=== PATIENT | female | born 1980 | race Caucasian/White ===

== ENCOUNTER → 2023-12-04 | Outpatient (CLI) | payer OTHER, SELFPAY ==
[2023-12-04 12:23] LABS: Absolute Lymphocyte Count 2.15 X10^3/uL (0.83-4.51); Absolute Neutrophil Count 3.9 X10^3/uL (2.0-7.7); Basophil# 0.04 X10^3/uL; Basophil% 0.6 % (0-1); Eosinophil# 0.27 X10^3/uL; Eosinophils% 3.8 % (0-5); Hematocrit 39.6 % (37-47); Lymphocyte # 2.15 X10^3/ul (0.83-4.51); Lymphocyte % 30.6 % (19-41); Mean Corp Hgb Conc 32.8 g/dL (32-36); Mean Corpuscular Hgb 29.5 pg (27.0-32.0); Mean Platelet Vol. 10.1 fl (6.2-12.0); Monocyte# 0.62 X10^3/uL; Monocyte% 8.8 % (0-10); NRBC Flagged by Analyzer 0 % (0-5); Neutrophil # 3.94 X10^3/uL (2.7-7.7); Neutrophil % 56.1 % (47-70); Platelet Count 303 K/mm3 (150-450); RBC Distribution Width CV 12.7 % (11.6-14.6); RBC Distribution Width SD 41.9 fl (35.1-43.9)
[2023-12-04 12:58] LABS: ALB/GLOB Ratio 1.1 RATIO (0.9-2.4); AST(SGOT) 28 U/L (15-37); Alanine Aminotransfer ALT/SGPT 48 U/L (13-56); Albumin, Serum 3.9 g/dL (3.2-5.0); Alkaline Phosphatase 27 U/L (45-117); Anion Gap 8 (5-15); BUN 13 mg/dL (7-18); BUN/Creat Ratio 17.1 RATIO (10-20); Calcium,Total 9.2 mg/dL (8.5-10.1); Chloride 102 mmol/L (98-107); Cholesterol 152 mg/dL (200); Creatinine, Serum 0.76 mg/dL (0.55-1.02); EST Glomerular Filtration Rate 88 mL/min (>60); Est Glom Filt Rate - Afr Amer 106 mL/min (>60); Free T3 2.8 pg/mL (2.18-3.98); Globulin 3.6 g/dL (2.2-4.2); Glucose 103 mg/dL (74-106); High Density Lipoprotein 56 mg/dL; Potassium 4.2 mmol/L (3.5-5.1); Protein, Total 7.5 g/dL (6.4-8.2); Sodium Level 136 mmol/L (136-145); T4 Free Direct 0.95 ng/dL (0.76-1.46); T4 Total, Thyroxin 9.2 ug/dL (4.8-13.9); Thyroid Stim Hormone (TSH) 1.63 uIU/mL (0.358-3.74); Triglycerides 143 mg/dL; Very Low Density Lipoprotein 29 mg/dL (5-40)
[2023-12-04 16:18] LABS: HIV - WCH Non-Reactive (Nonreactive)
[2023-12-07 21:08] LABS: Anti-Thyroglobulin AB < 1.0 IU/mL (0.0-0.9); Thyroglobulin, Serum Qt. 58.1 ng/mL (1.5-38.5); Thyroid Peroxidase AB 13 IU/mL (0-34); Thyroxin Bind Glob (TBG) 24 ug/mL (13-39)
== END | disposition home or self-care (01) ==
LOC: BFHLAB 10:40
PROVIDERS: PCP Nurse Practitioner Family; Referring Provider Nurse Practitioner Family; Visit Provider Nurse Practitioner Family
DX: Z00.01 Encounter for general adult medical examination with abnormal findings (principal); E03.9 Hypothyroidism, unspecified; E78.5 Hyperlipidemia, unspecified; Z20.9 Contact with and (suspected) exposure to unspecified communicable disease
CPT/HCPCS: 36415; 80053; 80061; 84432; 84436; 84439; 84442; 84443; 84481; 85025; 86376; 86703; 86800

== ENCOUNTER → 2024-03-11 | Outpatient (CLI) | payer OTHER, SELFPAY ==
--- NOTE | 2024-03-11 16:12 | BI_ITS ---
MAMMOGRAPHY - BILATERAL SCREENING REASON FOR EXAM: Female, 43 years old. Routine annual screening examination. PERTINENT HISTORY: Non-contributory. TECHNIQUE: Digital bilateral breast brie (3D mammographic acquisition) in the CC and MLO projections. 2-D mediolateral oblique (MLO) and craniocaudad (CC) views of both breasts were obtained. CAD: Full Field Digital Mammography with Computer Added Detection was performed. COMPARISON: Comparison is made with prior outside examination dated June 21, 2022. FINDINGS: Breast Composition: There are scattered areas of fibroglandular density. There are no dominant masses or suspicious calcifications. No other significant abnormalities are identified. There has been no significant change since the prior study. BI/SCRN MAMM (CAD)W/BRIE BILAT IMPRESSION: Stable bilateral screening mammogram. Yearly follow-up mammogram recommended. (A) ASSESSMENT CATEGORY: BIRADS Category 1: Negative. A letter regarding these results will be sent to the patient by the facility within 30 days. Approximately 10% of breast cancers are not detected by mammography. A normal mammogram should not delay biopsy of a clinically suspicious abnormality. [id number] Electronically Signed: Thee Cantu MD at 15:15 EDT ,
== END | disposition home or self-care (01) ==
LOC: OPBI 16:11
PROVIDERS: PCP Nurse Practitioner Family; Referring Provider Nurse Practitioner Family; Visit Provider Nurse Practitioner Family
DX: Z12.31 Encounter for screening mammogram for malignant neoplasm of breast (principal)
CPT/HCPCS: 77063; 77067

== ENCOUNTER → 2025-04-28 | Outpatient (CLI) | payer OTHER, SELFPAY ==
--- NOTE | 2025-04-28 16:11 | BI_ITS ---
EXAM: SCRN MAMM (CAD)W/BRIE BILAT DATE: 04/28/2025 CLINICAL HISTORY: F, Age 44 y/o , SCREENING No significant family history. TECHNIQUE: Procedure Code: [id number] Modality: MG Procedure: SCRN MAMM (CAD)W/BRIE BILAT COMPARISON: Prior exam(s) dated March 11, 2024.. FINDINGS: TISSUE DENSITY: There are scattered areas of fibroglandular density. Bilateral Breast Mammographic Findings: No significant masses, calcifications or other abnormalities are identified. No suspicious masses, areas of developing architectural distortion, or suspicious calcifications. There has been no significant interval change. BI/SCRN MAMM (CAD)W/BRIE BILAT IMPRESSION: Stable bilateral screening mammogram. OVERALL FINAL ASSESSMENT BI-RADS 1: NEGATIVE. RECOMMENDATION: Routine annual follow-up in 1 Year Additional Recommendation none A letter with findings and recommendations will be mailed to the patient. Reading Location: [facility]
== END | disposition home or self-care (01) ==
LOC: OPBI 16:10
PROVIDERS: PCP Nurse Practitioner Family; Referring Provider Nurse Practitioner Family; Visit Provider Nurse Practitioner Family
DX: Z12.31 Encounter for screening mammogram for malignant neoplasm of breast (principal)
CPT/HCPCS: 77063; 77067

== ENCOUNTER 2025-05-17 18:53 | Emergency (ER) | payer OTHER, SELFPAY ==
[2025-05-17 18:54] VITALS: BP 150/109; PULSE 85; RESP 22; TEMP 36; O2SAT 100
[2025-05-17 18:57] VITALS: BMI 45.6
--- NOTE | 2025-05-17 19:35 | US_ITS ---
PROCEDURE: PELVIC (NON ) 05/17/2025 REASON FOR EXAM: RLQ PAIN, SUDDEN ONSET, RULE OUT TORSION TECHNIQUE: Procedure Code: USPEL Modality: US Procedure: PELVIC (NON ) FINDINGS: The uterus is anteverted and measures 14.6 x 7.6 x 6.8 cm. Multiple uterine fibroids are present. A fibroid measuring 3.6 x 3.2 x 3.3 cm is present. A fibroid measuring 3.3 x 3.4 x 2.9 cm is present. A fibroid measuring 4.3 x 3.6 x 4.0 cm is present. A fibroid measuring 6.7 x 6.4 x 5.5 cm is present. A large pedunculated mass arising from the right uterine fundal fibroid neck is present and measures 10.4 x 9.8 x 9.0 cm with vascularity. The endometrium measures 3 mm and is heterogeneous. The cervix is within normal limits. The right ovary is visualized and measures 9.8 x 10.2 x 7.9 cm. A right ovarian cyst is present measuring 7.9 x 8.4 x 7.3 cm. Blood flow to the right ovary is within normal limits. The left ovary is visualized and measures 3.6 x 3.0 x 2.6 cm. Left ovarian cysts are present measuring 2.5 x 1.7 x 1.9 cm. Blood flow to the left ovary is within normal limits. No additional adnexal mass is identified aside from the pedunculated fibroid. No dilated tube is seen. No free fluid is present in the cul-de-sac. The urinary bladder volume at the time of exam is 194.90 milliliters. US/Pelvic (Non ) IMPRESSION: Large pedunculated mass arising from the right uterine fibroid neck measuring 1 0.4 x 9.8 x 9.0 cm, most consistent with a pedunculated fibroid. Large right ovarian cyst measuring 7.9 x 8.4 x 7.3 cm. Multiple additional uterine fibroids, the largest measuring 6.7 x 6.4 x 5.5 cm. Normal arterial blood flow to both ovaries. No free pelvic fluid. Reading Location[facility]
--- NOTE | 2025-05-17 19:37 | ED.VIS.GI ---
HPI HPI - GI History of Present Illness Chief Complaint: Abd Pain Narrative Narrative: Patient is a 44-year-old female presenting to the emergency department for sudden onset right lower quadrant pain that is radiating to her right low back. Patient states she has a history of ovarian cyst and this feels similar. She states that she was at the gym working out when she felt the sudden onset right lower quadrant pain. She denies fever or chills. Denies any chest pain or shortness of breath. Denies dysuria or hematuria. Denies any diarrhea or constipation. She is currently on her menstrual cycle. She reports that it was 2 weeks late and she thinks she is perimenopausal but states once it started it was typical for her, not significantly heavy. [facility] Medical History Hypertension GERD (gastroesophageal reflux disease) High cholesterol Home Medications ?Medication ?Instructions ?Recorded ?Last Taken ?Type citalopram 10 mg tablet 10 mg PO DAILY 05/17/25 Unknown History hydrochlorothiazide 12.5 mg tablet 12.5 mg PO DAILY 05/17/25 Unknown History lisinopril 40 mg tablet 40 mg PO DAILY 05/17/25 Unknown History loratadine 10 mg tablet (Claritin) 10 mg PO DAILY 05/17/25 Unknown History multivit with minerals-iron 18 1 tab PO DAILY 05/17/25 05/16/25 History mg-folic ac 400 mcg-vit K 25 mcg tablet (Adults Multivitamin) omeprazole 20 mg capsule,delayed 20 mg PO DAILY 05/17/25 05/16/25 History release phentermine 37.5 mg tablet 37.5 mg PO DAILY 05/17/25 05/16/25 History simvastatin 20 mg tablet 20 mg PO DAILY 05/17/25 05/16/25 History Allergy/AdvReac Type Severity Reaction Status Date / Time avocado (avacado) Allergy Intermediate Vomiting Verified 05/17/25 18:57 Family History no significant family his Surgical History no surgical history Social History Smoking Status: Never smoker ROS ROS ED ROS Narrative See HPI EXAM Physical Exam Narrative Exam Narrative: Vital signs: Reviewed General: Alert and oriented x 3. Uncomfortable appearing, no acute distress. HEENT: Head is normocephalic and atraumatic, sinuses nontender, pupils equal round and reactive. Nares are patent. Oropharynx and throat exams normal. Neck: Supple without lymphadenopathy nontender Cardiovascular: Regular rate and rhythm, no murmurs. No rubs or gallops. Normal S1 and S2 Respiratory: Clear to auscultation bilaterally. No wheezes, rales, rhonchi Abdominal: Soft and tender to palpation in the suprapubic and right lower quadrants. Normal bowel sounds. No guarding or rebound. No CVA tenderness to palpation. Extremities: No tenderness. No bruising. Normal range of motion. Normal sensation. Skin: No rash or redness. The rest of the physical exam is unremarkable Const Vital Signs: 05/17/25 18:54 05/17/25 20:30 05/17/25 21:00 Temperature 96.8 F L Temperature Source Temporal Pulse Rate 85 80 Respiratory Rate 22 H 18 Blood Pressure 150/109 H 168/93 H 168/93 H Blood Pressure Mean 122 118 118 Pulse Ox 100 95 Oxygen Delivery Method Room Air Room Air 05/17/25 22:00 05/17/25 22:06 Temperature 96.8 F L Temperature Source Pulse Rate 81 81 Respiratory Rate 16 16 Blood Pressure 168/93 H Blood Pressure Mean 118 Pulse Ox 98 98 Oxygen Delivery Method Room Air MDM MDM MDM Narrative Medical decision making narrative: Patient is a 44-year-old female presenting to the emergency department for sudden onset right lower quadrant pain. Patient was seen and examined. Vitals are stable. Patient appears uncomfortable however she is not in acute distress. Differential includes but is not limited to: Ovarian torsion, hemorrhagic cyst, nephrolithiasis, UTI, appendicitis, musculoskeletal Patient was offered morphine and Zofran for symptomatic control. She declined both. Labs, CT imaging and pelvic ultrasound were ordered. CBC with no leukocytosis and a normal hemoglobin. CMP with mild transaminitis, normal total bilirubin and alk phos. Normal lipase. Mild hypokalemia 3.2. Mild anion gap of 18, fluid bolus started. Urinalysis with no evidence of urinary tract infection. Urine negative. CT shows large subserosal right fundal uterine fibroid measuring 9.5 x 3.7 cm, likely the source of right lower quadrant pain. Hepatic steatosis. No evidence of appendicitis. No bowel obstruction. No hydroureteronephrosis. Chronic findings including splenic granulomatous calcifications and mild lumbar degenerative changes. Hepatic steatosis. Pelvic ultrasound shows large pedunculated mass arising from the right uterine fibroid neck measuring 10.4 x 9.8 x 9.0 cm, most consistent with a pedunculated fibroid. Large right ovarian cyst measuring 7.9 x 8.4 x 7.3 cm. Multiple additional uterine fibroids, the largest measuring 6.7 x 6.4 x 5.5 cm. Normal arterial blood flow to both ovaries. No free pelvic fluid. Patient was updated on the findings. She was notified of the uterine fibroids as well as the right sided ovarian cyst. Notified of the mild transaminitis. Patient's pain could be due to the fibroids versus intermittent ovarian torsion from the right sided ovarian cyst being less likely given the good blood flow on ultrasound however intermittent torsion is still a possibility. This was explained to the patient. She is pain-free at this time. I will provide her with PATIENT ACCOUNTS MANAGER follow-up. I explained to her that she needs to return immediately if she develops any new or worsening pain. Patient discharged from the Emergency Department. I do not feel that the patient's evaluation reveals any acute reason for admission at this time. I instructed them to either follow-up with their primary care physician or promptly return to the Emergency Department for reevaluation should symptoms worsen or new symptoms develop. I explained what symptoms would indicate the need to return to the emergency department. Shared decision making was used. The patient voiced understanding of the treatment plan and is agreeable with it. Clinical impression: Abdominal pain Ovarian cyst Uterine fibroid Transaminitis History & Record Review Discussion w/independent historian: Patient Lab Data Attestation: I reviewed the patient's lab results. Labs: Laboratory Results - last 24 hr 05/17/25 05/17/25 19:10 20:38 WBC 8.8 RBC 4.47 Hgb 13.2 Hct 39.7 MCV 88.8 MCH 29.5 MCHC 33.2 RDW Std Deviation 41.8 RDW Coeff of Casie 12.7 Plt Count 374 MPV 10.4 Immature Gran % (Auto) 0.300 Neut % (Auto) 56.3 Lymph % (Auto) 31.0 Morrison % (Auto) 8.6 Eos % (Auto) 2.9 Baso % (Auto) 0.9 Absolute Neuts (auto) 5.0 Absolute Lymphs (auto) 2.74 Nucleated RBC % 0 Sodium 137 Potassium 3.2 L Chloride 96 L Carbon Dioxide 22.6 Anion Gap 18 H BUN 13 Creatinine 0.70 Estim Creat Clear Calc 143.81 Est GFR (MDRD) Non-Af 108 BUN/Creatinine Ratio 17.8 Glucose 128 H Calcium 9.3 Total Bilirubin 0.40 AST 39 H ALT 49 H Alkaline Phosphatase 41 Total Protein 7.6 Albumin 4.7 Globulin 2.9 Albumin/Globulin Ratio 1.6 Lipase 36 Urine Color Yellow Urine Clarity Clear Urine pH 7.0 Ur Specific Bronson 1.010 Urine Protein 30 H Urine Glucose (UA) Normal Urine Ketones 5 H Urine Occult Blood 10 H Urine Nitrite Negative Urine Bilirubin Negative Urine Urobilinogen Normal Ur Leukocyte Esterase Negative Urine RBC 0-5 SEEN Urine WBC 0-5 SEEN Ur Squamous Epith Cells 0-5 SEEN Urine Bacteria 0 SEEN Urine Mucus 0 SEEN Urine Test Negative Radiography Diagnostic Testing: Clinical Impression(s) from Imaging Studies Pelvis Ultrasound 05/17/25 19:35 IMPRESSION: Large pedunculated mass arising from the right uterine fibroid neck measuring 10.4 x 9.8 x 9.0 cm, most consistent with a pedunculated fibroid. Large right ovarian cyst measuring 7.9 x 8.4 x 7.3 cm. Multiple additional uterine fibroids, the largest measuring 6.7 x 6.4 x 5.5 cm. Normal arterial blood flow to both ovaries. No free pelvic fluid. Reading Location: [facility] Abdomen/Pelvis CT 05/17/25 20:01 IMPRESSION: Large subserosal right fundal uterine fibroid measuring 9.5 x 3.7 cm, likely the source of right lower quadrant pain. Hepatic steatosis. No evidence of appendicitis. No bowel obstruction. No hydroureteronephrosis. Chronic findings including splenic granulomatous calcifications and mild lumbar degenerative changes. Hepatic steatosis. Reading Location: [facility] Discharge Plan Triage Chief Complaint: Abd Pain ED Provider: Ana Joe Dx/Rx/DC Orders Clinical Impression: Ovarian cyst, Fibroid, uterine, Abdominal pain, Transaminitis Instructions: Abdominal Pain, Treatment for Ovarian Cysts, ED Ovarian Cyst, ED Uterine Fibroids Prescriptions: No Action citalopram 10 mg tablet 10 mg PO DAILY phentermine 37.5 mg tablet 37.5 mg PO DAILY simvastatin 20 mg tablet 20 mg PO DAILY omeprazole 20 mg capsule,delayed release(DR/EC) 20 mg PO DAILY lisinopril 40 mg tablet 40 mg PO DAILY hydrochlorothiazide 12.5 mg tablet 12.5 mg PO DAILY loratadine [Claritin] 10 mg tablet 10 mg PO DAILY Adults Multivitamin 18 mg iron-400 mcg-25 mcg tablet 1 tab PO DAILY Primary Care Provider: Marisol Botello Referrals: Esther Ayala MD [Med Staff - Active Staff, Obstetrics-Gynecology (OBGYN)] - As soon as possible Marisol Botello, [employer] [Primary Care Provider, Family Practice] Activity Restrictions/Additional Instructions: Please follow-up with the PATIENT ACCOUNTS MANAGER listed below. Return if you develop any new or worsening symptoms. Your evaluation in the Emergency Department did not reveal any acute reason for admission. However, I want to emphasize that you may be early in the course of a disease process or illness even if it is not present. For this reason you should follow-up within 24 hours for reevaluation with either your primary care physician or if necessary back here in the Emergency Department. You should return to the Emergency Department immediately if your symptoms worsen or new symptoms develop. Print Language: Hungarian Disposition Disposition: Home, Self Care Discharge Date/Time: 05/17/25 22:32
--- NOTE | 2025-05-17 20:01 | CT_ITS ---
PROCEDURE: ABDOMEN/PELVIS W IV CONT ONLY 05/17/2025 REASON FOR EXAM: RLQ PAIN TECHNIQUE: Procedure Code: [id number] Modality: CT Procedure: ABDOMEN/PELVIS W IV CONT ONLY Coronal and Sagittal reconstruction series were provided. CONTRAST: Isovue 370 VOLUME: 98 mL One or more dose reduction techniques were used (e.g., Automated exposure control, adjustment of the mA and/or kV according to patient size, use of iterative reconstruction technique. RADIATION DOSE SUMMARY: CTDlvol: 6+ 24 mGy DLP: 1370 mGycm FINDINGS: Right lung base calcified granuloma. Mild degenerative changes of the spine. Normal caliber abdominal aorta. No suspicious lymphadenopathy. The liver is hypodense suspicious for steatosis. The gallbladder, pancreas are unremarkable. Punctate calcifications in the spleen likely representing prior granulomatous infection. Symmetric enhancement of the bilateral kidneys. No hydroureteronephrosis. The urinary bladder is unremarkable. Anteverted uterus with multiple fibroids. Arising from the right uterine fundus there appears to be a large subserosal 9.5 x 3.7 cm fibroid. Normal caliber large and small bowel. Surrounding inflammatory changes. CT/Abdomen/Pelvis W IV Cont ONLY IMPRESSION: Large subserosal right fundal uterine fibroid measuring 9.5 x 3.7 cm, likely th e source of right lower quadrant pain. Hepatic steatosis. No evidence of appendicitis. No bowel obstruction. No hydroureteronephrosis. Chronic findings including splenic granulomatous calcifications and mild lumbar degenerative changes. Hepatic steatosis. Reading [facility]
[2025-05-17 20:10] LABS: Lipase 36 U/L (13-75)
[2025-05-17 20:23] LABS: AST(SGOT) 39 U/L (<=31); Alanine Aminotransfer ALT/SGPT 49 U/L (<=34); Albumin, Serum 4.7 g/dL (3.5-5.0); Alkaline Phosphatase 41 U/L (35-104); Anion Gap 18 (5-15); BUN 13 mg/dL (4-19); BUN/Creat Ratio 17.8 RATIO (10-20); Calcium,Total 9.3 mg/dL (7.6-11.0); Carbon Dioxide 22.6 mmol/L (21.0-32.0); Chloride 96 mmol/L (98-108); Estimated Creatinine Clearance 143.81 ml/min (50-250); Globulin 2.9 g/dL (2.2-4.2); Glucose 128 mg/dL (70-99); Potassium 3.2 mmol/L (3.3-5.1)
[2025-05-17 20:30] VITALS: BP 168/93; PULSE 80; RESP 18; O2SAT 95
[2025-05-17 20:32] LABS: Hematocrit 39.7 % (37-47); Hemoglobin 13.2 g/dL (12.0-15.0); Immature Granulocytes Count 0.030 X10^3/uL (0.0-0.0); Mean Corp Hgb Conc 33.2 g/dL (32-36); Mean Corpuscular Volume 88.8 fL (81-99); Mean Platelet Vol. 10.4 fl (6.2-12.0); NRBC Flagged by Analyzer 0 % (0-5); Platelet Count 374 K/mm3 (150-450); RBC Distribution Width CV 12.7 % (11.6-14.6); RBC Distribution Width SD 41.8 fl (35.1-43.9); Red Blood Count 4.47 M/mm3 (4.2-5.4); White Blood Count 8.8 K/mm3 (4.4-11.0)
[2025-05-17] MEDS: 0.9% Normal Saline (1000mL) 1,000 ML 1000 ML IV (20:53)
--- OUTSIDE RECORDS SUMMARY | 2025-05-17 20:56 | XMS RPT_ITS | CCD ---
Author Organization [facility] Care Team Providers Care Geospatial Scientist Name Role Phone Sharee Thornton MD Primary Care Provider Sharee Thornton MD Primary Care Provider [employer]KEE, Katie Unavailable [phone] AyanMarisol Attending Unavailable Ayan, Marisol Primary Care Unavailable Ayan, Marisol Referring Unavailable Ayan, Marisol Primary Care Unavailable Gigi Rey Attending Unavailable Ayan, Marisol Referring Unavailable Ayan, Marisol Primary Care Unavailable Siddhartha Fields Attending Unavailable Ayan, Marisol Referring Unavailable Ayan ELEMENTARY EDUCATION TUTOR-C, Marisol Primary Care Physician Ayan ELEMENTARY EDUCATION TUTOR-C, Marisol Referring Provider [phone] Siddhartha Meraz Attending Physician Allergies Allergy Classification Reported Allergen(s) Allergy Type Date of Onset Reaction(s) Facility (20 sources) avocado allergenic extract Drug Allergy 9 Hives, Other: See Comments [facility] (20 sources) Mold Extract Drug Allergy 6 [facility] (20 sources) Seasonal allergy Allergy to substance 1 Itching, Other: See Comments [facility] (1 source) avocado oil Drug Allergy 5 [facility] Repository Medications Current Medications Medication Drug Class(es) Dates Sig (Normalized) Sig (Original) amoxicillin 500 mg oral capsule (1 source) Penicillin-class Antibacterial Start: 03-27-2025 End: 04-01-2025 take 1 capsule by mouth three times daily Amoxicillin 500 mg capsule Discontinued 500 mg PO THREE TIMES A DAY 15 5 0 March 26, 2025 11:00pm March 30, 2025 11:00pm March 31, 2025 11:11pm ascorbic acid 500 mg chewable tablet (17 sources) Vitamin C take 500 mg by mouth once daily Ascorbic Acid (VITAMIN C WITH TRESA HIPS) 500 mg chew Take 500 mg by mouth once daily. Active Comment on above: Take 500 mg by mouth once daily. benoxinate hydrochloride 4 mg/ml / fluorescein sodium 2.5 mg/ml ophthalmic solution (1 source) Diagnostic Dye Start: 10-19-2021 End: 10-19-2021 fluorescein-benoxi katie 0.25-0.4 % 1 Drop (FLURESS) Biotin (20 sources) BIOTIN ORAL Take by mouth once daily. Active BIOTIN ORAL Take by mouth once daily. 0 Active Comment on above: Take by mouth once d aily. Calcium (20 sources) Phosphate Binder, Calcium CALCIU M ORAL Take by mouth. Active CALCIUM ORAL Lit e by mouth. 0 Active Comment on above: Take by mouth. citalopram 10 mg oral tablet (20 sources) Serotonin Reuptake Inhibitor Start: 11-27-2023 take 1 tablet by mouth once daily citalopram hydrobromide (CELEXA) 10 mg tablet Indications: Situational anxiety Take 1 tablet by mouth once daily. 90 tablet 11/27/2023 Active Start: 06-06-2021 End: 11-27-2023 take 1 tablet by mouth once daily citalopram hydrobromide (CELEXA) 10 mg tablet Indications: Situational anxiety Take 1 tablet by mouth once daily. 90 tablet 0 08/12/2023 11/27/2023 Discontinued Comment on above: Take 1 tablet by [facility] once daily. collagen/biotin/ascorbic acid (COLLAGEN 1500 PLUS C ORAL) (17 sources) collagen/biotin/ ascorbic acid (COLLAGEN 1500 PLUS C ORAL) Take by mouth. Active collagen/biotin/ ascorbic acid (COLLAGEN 1500 PLUS C ORAL) Take by mouth. 0 Active Comment on above: Take by mouth. hydroCHLOROthiazide 12.5 mg oral capsule (20 sources) Thiazide Diuretic Start: 2020 End: 2023 take 1 capsule by mouth once daily hydroCHLOROthiazide 12.5 mg capsule Indications: Essential hypertension, benign Take 1 capsule by mouth once daily. 90 capsule 1 08/12/2023 Active Comment on above: Take 1 capsule by mo [facility] once daily. lisinopril 40 mg oral tablet (20 sources) Angiotensin Converting Enzyme Inhibitor Start: 2020 End: 2023 take 1 tablet by mouth once daily lisinopril (ZESTRIL) 40 mg tablet Indications: Essential hypertension, benign Take 1 tablet by mouth once daily. 90 tablet 1 08/12/2023 Active Comment on above: Take 1 tablet by [place] once daily. loratadine 10 mg oral tablet (20 sources) Start: 2013 loratadine (CLARITIN) 10 mg tablet 2 TABLETS DAILY FOR ALLERGY SYMPTOMS 06/26/2013 Active Start: 06-26-2013 loratadine (CL ARITIN) 10 mg tablet 2 TABLETS DAILY FOR ALLERGY SYMPTOMS 0 06/26/2013 Active Comment on above: 2 TABLETS DAILY FOR ALLERGY SYMPTOMS omeprazole 20 mg delayed release oral capsule (20 sources) Proton Pump Inhibitor Start: 2020 End: 2023 take 1 capsule by mouth once daily omeprazole (PRILOSEC) 20 mg capsule Take 1 capsule by mouth once daily. 90 capsule 1 08/12/2023 Active Comment on above: Take 1 capsule by mo [facility] once daily. phenylephrine hydrochloride 25 mg/ml ophthalmic solution (1 source) alpha-1 Adrenergic Agonist Start: 2021 End: 2021 PHENYLephrine 2.5 % 1 Drop (AK-DILATE, MAGY-SYNEPHRINE) 72 hr scopolamine 0.0139 mg/hr transdermal system (15 sources) Anticholinergic Start: 2022 End: 2022 scopolamine (TRANSDERM-SCOP) patch 1.5 mg/72 hr (delivers 1 mg over 3 days) Apply 1 Patch as directed every 72 hours. Apply patch to skin behind ear 4hrs prior to travel. 4 Patch 1 02/19/2023 Active Comment on above: Apply 1 Patch as dir ected every 72 hours. Apply patch to skin behind ear 4hrs prior to travel. semaglutide (OZEMPIC) 0.25 mg or 0.5 mg (2 mg/3 mL) pen (2 sources) Start: 2022 End: 2022 inject 0.5 mg by subcutaneous injection every week semaglutide (OZEMPIC) 0.25 mg or 0.5 mg (2 mg/3 mL) pen Inject 0.5 mg subcutaneously one time a week. 3 mL 2 03/06/2023 06/04/2023 Active Comment on above: Inject 0.5 mg subcut aneously one time a week. simvastatin 20 mg oral tablet (20 sources) HMG-CoA Reductase Inhibitor Start: 2020 End: 2023 take 1 tablet by mouth once daily at bedtime simvastatin (ZOCOR) 20 mg tablet Indications: Hyperlipidemia LDL goal Take 1 tablet by mouth daily at bedtime. 90 tablet 1 08/12/2023 Active Comment on above: Take 1 tablet by hernando th daily at bedtime. THERAPEUTIC MULTIVITAMIN TAB (20 sources) Start: 2005 THERAPEUTIC MULTIVITAMIN TAB Take one(1) tablet daily. 0 08/28/2005 Active Comment on above: Take one(1) tablet d aily. tropicamide 10 mg/ml ophthalmic solution (1 source) Anticholinergic Start: 2021 End: 2021 tropicamide 1 % 1 Drop (MYDRIACYL) valACYclovir 1000 mg oral tablet (5 sources) Herpesvirus Nucleoside Analog DNA Polymerase Inhibitor, Herpes Simplex Virus Nucleoside Analog DNA Polymerase Inhibitor, Herpes Zoster Virus Nucleoside Analog DNA Polymerase Inhibitor Start: 2021 End: 2021 take 1 tablet by mouth three times daily valACYclovir (VALTREX) 1 gram Indications: Herpes zoster with complication Take 1 tablet by mouth three times daily for 7 days. 21 tablet 0 11/02/2021 11/09/2021 Active Start: 10-18-2021 End: 10-25-2021 take 1 tablet by mouth three times daily valACYclovir (VALTREX) 1 gram Take 1 tablet by mouth three times daily for 7 days. 21 tablet 0 10/18/2021 10/25/2021 Active Comment on above: Take 1 tablet by hernando th three times daily for 7 days. Vitamin B Complex (17 sources) vitamin B comple x (B COMPLEX 1 ORAL) Take by mouth. Active vitamin B comple x (B COMPLEX 1 ORAL) Take by mouth. 0 Active Comment on above: Take by mouth. Completed/Discontinued Medications Medication Drug Class(es) Dates Sig (Normalized) Sig (Original) amoxicillin 875 mg / clavulanate 125 mg oral tablet (1 source) Penicillin-class Antibacterial Start: 05-01-2024 End: 05-11-2024 Amoxicillin-Pot Clavulanate 875-125 mg tablet Discontinued 1 {tbl} PO Q12H 20 10 0 May 01, 2024 12:00am May 10, 2024 12:00am May 11, 2024 12:08am Acute sinusitis, unspecified benzonatate 100 mg oral capsule (1 source) Non-narcotic Antitussive Start: 05-01-2024 End: 03-27-2025 take 2 capsules by mouth three times daily as needed for cough Benzonatate 100 mg capsule Discontinued 200 mg PO THREE TIMES A DAY as needed for cough 30 0 May 01, 2024 12:00am March 27, 2025 10:23am semaglutide (OZEMPIC) 1 mg/dose (4 mg/3 mL) pen (2 sources) Start: 02-14-2023 inject 1 mg by subcutaneous injection every week semaglutide (OZEMPIC) 1 mg/dose (4 mg/3 mL) pen Inject 1 mg subcutaneously one time a week. 4 mL 0 02/14/2023 Active Comment on above: Inject 1 mg subcutan eously one time a week. triamcinolone acetonide 0.001 mg/mg topical ointment (20 sources) Corticosteroid Start: 05-24-2022 End: 06-23-2022 triamcinolone acetonide (KENALOG) 0.1 % ointment Indications: Eczema, unspecified type Apply 1 application to affected area twice daily. BID - APPLY TO AFFECTED AREAS, NOT FACE OR SKIN FOLDS 30 g 2 05/24/2022 06/23/2022 triamcinolone (K ENALOG) 0.025 % ointment Apply to affected area twice daily. Active Comment on above: Apply 1 application to affected area twice daily. BID - APPLY TO AFFECTED AREAS, NOT FACE OR SKIN FOLDS Apply to affected ar ea twice daily. Problems Active Problems Problem Classification Problem Date Documented Date Episodic/Chronic Allergic reactions (1 source) Eczema; Translations: [Dermatitis, unspecified] Episodic Anxiety disorders (20 sources) Anxiety; Translations: [Other specified anxiety disorders] Onset: 11-05-2017 11-05-2017 Chronic Disorders of lipid metabolism (20 sources) Hyperlipidemia; Translations: [Hyperlipidemia, unspecified] Onset: 03-26-2016 03-26-2016 Chronic Disorders of teeth and jaw (2 sources) Infection of tooth; Translations: [Periapical abscess without sinus] 03-27-2025 Episodic Esophageal disorders (20 sources) Gastroesophageal reflux disease; Translations: [Gastro-esophageal reflux disease without esophagitis] Onset: 04-19-2008 04-19-2008 Chronic Essential hypertension (20 sources) Benign essential hypertension; Translations: [Essential (primary) hypertension] Onset: 04-19-2008 04-19-2008 Chronic Hepatitis (20 sources) Nonalcoholic steatohepatitis; Translations: [Nonalcoholic steatohepatitis (CLEMENTE)] 03-31-2021 Chronic Immunizations and screening for infectious disease (1 source) Viral screening status; Translations: [Encounter for screening for other viral diseases] Episodic Inflammation; infection of eye (except that caused by tuberculosis or sexually transmitteddisease) (1 source) Varicella-zoster virus eyelid dermatitis; Translations: [Other herpes zoster eye disease] Episodic Other nutritional; endocrine; and metabolic disorders (20 sources) Morbid obesity; Translations: [Morbid (severe) obesity due to excess calories] Onset: 04-19-2008 04-19-2008 Chronic Other screening for suspected conditions (not mental disorders or infectious disease) (6 sources) Patient encounter status; Translations: [Encounter for screening mammogram for malignant neoplasm of breast] Onset: 04-08-2025 Episodic Viral infection (2 sources) Herpes zoster with complication; Translations: [Zoster with other complications] Episodic Past or Other Problems Problem Classification Problem Date Documented Da te Episodic/Chronic Biliary tract disease (2 sources) Disorder of gallbladder; Translations: [Other specified diseases of gallbladder] Onset: 09-03-2008 Resolved: 03-26-2016 03-26-2016 Episodic Nonmalignant breast conditions (2 sources) Lump in right breast; Translations: [Unspecified lump in the right breast, unspecified quadrant] Onset: 11-05-2017 Resolved: 11-17-2018 11-17-2018 Episodic Other connective tissue disease (2 sources) Plantar fasciitis; Translations: [Plantar fascial fibromatosis] Onset: 11-05-2017 Resolved: 11-17-2018 11-17-2018 Episodic Other upper respiratory infections (2 sources) Acute sinusitis, unspecified; Translations: [Acute sinusitis] Onset: 05-01-2024 05-01-2024 Episodic Unclassified (1 source) Patient encounter status 07-18-2024 Results Test Name Value Interpretation Reference Range Facil ity Urgent Care Visit Reporton 1 Urgent Care Visit Report [facility] [address], [address] [place], [place] [address] OFFICE VISIT Date of Service: 03/27/25 MR#: [id number] Acct: [id number] Name: MACIE CHAVEZ Rep #: [id number] : 1980 Provider: ANGELA Pressley Age/Sex: 44/F Location: [facility] Status: Signed Intake Vital Signs 05/01/24 10:35 03/27/25 11:22 Height 5 ft 7 in Weight: 275 lb BMI 43.0 BP 128/86 H 142/68 H Blood Pressure Location Rt brachial Lt brachial Position Sitting Sitting Respiration 12 16 Pulse 94 73 Pulse Source Monitor NIBP Temp 98.4 F 98.3 F Temp Source Oral Oral Pulse Oximetry (%) 99 97 Oxygen Delivery Method room air room air Intake Visit Reasons: INFECTED TOOTH Chief Complaint: tooth pain Electronic Science Teacher Required: No Is patient in pain?: Yes Allergies avocado (avacado) Allergy (Intermediate, Verified 03/27/25 11:22) Vomiting Medications ???Medication ???Instructions ???Recorded ???Confirmed ???Type amoxicillin 500 mg capsule 500 mg PO TID 5 days #15 caps 03/1003/27/25 Rx Is last menstrual period known: No Post menopausal: No Patient : No Have you fallen in the past year?: No Nurse's Note: right upper tooth pain and swelling. hx of root canal in area of concern, has appt with supervisor forming and tempering in the coming week. concern for infection HPI HPI Chief Complaint: tooth pain Details: MACIE CHAVEZ, is a 44 F who presents to the office today for evaluation of a dental infection. Patient states that she recently was treated for a dental infection approximately 3 weeks ago with amoxicillin TID x 10 days, she completed her course of antibiotic but has since noticed recurrence of discomfort over the past several days. Patient is set to see the supervisor forming and tempering in 5 days for definitive management but is concerned for worsening infection prior to upcoming procedure. Pain is currently well controlled on OTC analgesia. ROS Const Constitutional: No chills, fatigue, fever(s) or headache(s) ENT ENT: Positive for dental pain and mouth pain; No headache(s) Neuro Neurology: No headache(s) Endo Endocrine: No fatigue Exam Const General: cooperative, healthy appearing and no acute distress HENMT Mouth: oral mucosae normal, tongue normal, oropharynx normal and moist mucous membranes Teeth and gingiva: gingiva normal and abnormal tooth or associated gingiva upper right tender; without any associated gingival edema, without associated gingival fluctuance, dentin not fractured and pulp not exposed Neck Lymphatic: no lymphadenopathy noted Coding Level of Care Code Established Pt Off vis,est,level 3 Patient Type Established History Expanded Problem Focused Exam Expanded Problem Focused Medical Decision Making Moderate Complexity Diagnoses Dental infection K04.7 Assessment and Plan Assessment and Plan (1) Dental infection: Status: Acute Plan: Mild symptoms, however given signs of recurrence with recent infection will provide Rx at this time to cover for infection while awaiting definitive management by dentist. Encouraged continued use of OTC analgesia for pain relief. Encouraged urgent f/u in the ER with severe edema, pain, or fever for reevaluation. Patient voiced understanding and agreement with plan. Medications: New amoxicillin 500 mg PO TID 15 caps 0RF 5 days Clinical Quality Measures Falls Risk Screening/Assistive Devices Have you fallen in the past year?: No 03/27/25 1133 Date Siddhartha Herrmann Signature: Date (if applicable) CC: Normal [facility] Urgent Care Visit Reporton 1 07-01-2023 Urgent Care Visit Report [facility] [address] [place] [address] OFFICE VISIT Date of Service: 05/01/24 MR#: [id number] Acct: [id number] Name: MACIE CHAVEZ Rep #: [id number] : 1980 Provider: ANGELA Jaramillo Age/Sex: 43/F Location: [facility] Status: Signed Intake Vital Signs 05/01/24 10:35 Height 5 ft 7 in Weight: 275 lb BMI 43.0 BP 128/86 H Blood Pressure Location Rt brachial Position Sitting Respiration 12 Pulse 94 Pulse Source Monitor Temp 98.4 F Temp Source Oral Pulse Oximetry (%) 99 Oxygen Delivery Method room air Intake Visit Reasons: COUGH, SNEEZING, HEADACHE Allergies avocado (avacado) Allergy (Intermediate, Verified 05/01/24 10:36) Vomiting HPI HPI Details: MACIE CHAVEZ, is a 43 F who presents to the office today for complaint of sinus congestion/pressure and pain for the past 2 weeks. Patient also states having a cough starting over the past 4 days. She denies hemoptysis, shortness of breath or difficulty breathing. No fever, chills, sweats. No nausea, vomiting, diarrhea. She has not taken any medications for his current episode. No other associated symptoms or alleviating/aggravati ng factors. ROS Const Constitutional: No other (6 system ROS completed with pertinent findings in the HPI otherwise normal.) Exam Const General: cooperative and healthy appearing HENCA Head: normal to inspection Ears: hearing grossly normal bilaterally, TM's normal bilaterally and EAC's normal Nose: nasal discharge purulent Face and sinus: sinus tenderness frontal and maxillary Mouth: oral mucosae normal Throat: abnormal tonsil bilaterally erythema and hypertrophy 1+ and postnasal drainage Resp Effort Inspection: normal respiratory effort Auscultation: Bilateral: Clear to Auscultation Cardio Palpation: normal PMI Rate: regular rate Rhythm: regular rhythm Neuro General: patient alert and CN's II-XI intact bilaterally Psych Appearance: grossly normal Mental Status: mental status grossly normal Coding Level of Care Code Off vis,new,level 3 Diagnoses Acute sinusitis J01.90 Assessment and Plan Assessment and Plan (1) Acute sinusitis: Status: Acute Medications: New amoxicillin-pot clavulanate 875-125 mg 1 TAB PO Q12H 20 tabs 0RF 10 days J01.90 - Acute sinusitis, unspecified benzonatate 200 mg (2 x 100 mg) PO TID PRN 30 caps 0RF cough Plan Augmentin and benzonatate as prescribed today. Encouraged to get plenty of rest, drink lots of clear liquids, and use Tylenol or Ibuprofen (unless contraindicated) for fever and comfort. Patient also educated on other symptomatic management techniques. To be seen in 7-10 days if no improvement; sooner if worsening of symptoms. Patient advised of potential red flags and when appropriate to report to the ED. Patient verbalized understanding and agreement with all the above. 05/01/24 1051 Date Gigi Herrmann Signature: Date (if applicable) CC: Normal [facility] LANDON SCREENINGon 06-21-2022 [facility] Comprehensive metabolic 2000 panelon 05-25-2022 Albumin [Mass/Vol] 4.3 g/dL 3.9 - 4.9 g/dL [facility] ALP [Catalytic activity/Vol] 36 U/L 34 - 123 U/L [facility] ALT [Catalytic activity/Vol] 70 U/L High 7 - 38 U/L [facility] Anion gap [Moles/Vol] 11 mmol/L 9 - 18 mmol/L [facility] AST [Catalytic activity/Vol] 43 U/L High 13 - 35 U/L [facility] Bilirubin [Mass/Vol] 0.2 mg/dL 0.2 - 1.3 mg/dL [facility] Calcium [Mass/Vol] 9.5 mg/dL 8.5 - 10. 2 mg/dL [facility] Chloride [Moles/Vol] 103 mmol/L 97 - 105 mmol/L [facility] CO2 [Moles/Vol] 24 mmol/L 22 - 30 mmol/L [facility] Creatinine [Mass/Vol] 0.75 mg/dL 0.58 - 0.96 mg/dL [facility] Estimated Glomerular Filtration Rate 102 mL/min/1.73m >=60 mL/min/1.73m [facility] Glucose [Mass/Vol] 79 mg/dL 74 - 99 mg/dL [facility] Potassium [Moles/Vol] 4.3 mmol/L 3.7 - 5.1 mmol/L [facility] Protein [Mass/Vol] 7.1 g/dL 6.3 - 8.0 g/dL [facility] Sodium [Moles/Vol] 138 mmol/L 136 - 144 mmol/L [facility] Urea nitrogen [Mass/Vol] 15 mg/dL 7 - 21 mg/dL [facility] HEP C AB IA W/CONF SCRNon HCV Ab Ql (S) Negative Negative [facility] HbA1c (Bld)on 05-25-2022 Average glucose Estimated from glycated hemoglobin (Bld) [Mass/Vol] 103 mg/dL [facility] HbA1c (Bld) [Mass fraction] 5.2 % 4.3 - 5.6 % [facility] LIPID PANEL, NONFASTINGon Cholesterol [Mass/Vol] 153 mg/dL <200 mg/dL [facility] HDL Cholesterol, Nonfasting 48 mg/dL >39 mg/dL [facility] LDL Cholesterol, Nonfasting 69 mg/dL <100 mg/dL [facility] LDL/HDL Ratio, Nonfasting 1.44 mg/dL <2.54 mg/dL [facility] Non HDL Cholesterol, Nonfasting 105 mg/dL <130 mg/dL [facility] Total Chol/HDL Ratio, Nonfasting 3.19 mg/dL <5.10 mg/dL [facility] Triglycerides, Nonfasting 179 mg/dL High <150 mg/dL [facility] VLDL Cholesterol, Nonfasting 36 mg/dL High <30 mg/dL [facility] CBC W Auto Differential pane l (Bld)on 05-24-2022 Basophils (Bld) [#/Vol] 0.08 10*3/uL <0.11 k/uL [facility] Basophils/100 WBC (Bld) 0.8 % [facility] Differential cell count method Nom (Bld) Auto [facility] Eosinophils (Bld) [#/Vol] 0.27 10*3/uL <0.46 k/uL [facility] Eosinophils/100 WBC (Bld) 2.7 % [facility] Erythrocyte distribution width (RBC) [Ratio] 12.8 % 11.5 - 15.0 % [facility] Hematocrit (Bld) [Volume fraction] 38.4 % 36.0 - 46.0 % [facility] Hemoglobin (Bld) [Mass/Vol] 12.6 g/dL 11.5 - 15.5 g/dL [facility] Immature granulocytes (Bld) [#/Vol] <0.10 k/uL [facility] Immature granulocytes/100 WBC (Bld) 0.2 % [facility] Lymphocytes (Bld) [#/Vol] 2.55 10*3/uL 1.00 - 4.00 k/uL [facility] Lymphocytes/100 WBC (Bld) 25.1 % [facility] MCH (RBC) [Entitic mass] 30.4 pg 26.0 - 34.0 pg [facility] MCHC (RBC) [Mass/Vol] 32.8 g/dL 30.5 - 36.0 g/dL [facility] MCV (RBC) [Entitic vol] 92.5 fL 80.0 - 100.0 fL [facility] Monocytes (Bld) [#/Vol] 1.04 10*3/uL High <0.87 k/uL [facility] Monocytes/100 WBC (Bld) 10.2 % [facility] Neutrophils (Bld) [#/Vol] 6.21 10*3/uL 1.45 - 7.50 k/uL [facility] Neutrophils/100 WBC (Bld) 61.0 % [facility] Nucleated RBC (Bld) [#/Vol] <0.01 k/uL [facility] Nucleated RBC/100 WBC (Bld) [Ratio] 0.0 /100 WBC [facility] Platelet mean volume (Bld) [Entitic vol] 10.3 fL 9.0 - 12.7 fL [facility] Platelets (Bld) [#/Vol] 310 10*3/uL 150 - 400 k/uL [facility] RBC (Bld) [#/Vol] 4.15 10*6/uL 3.90 - 5.2 0 m/uL [facility] WBC (Bld) [#/Vol] 10.17 10*3/uL 3.70 - 11 .00 k/uL [facility] Vital Signs Date Time Vital Sign Value Performing Clinician Alfonso kennedy 03-27-2025 11:22-0400 Body temperature 98.3 [degF] Marisol Botello ELEMENTARY EDUCATION TUTOR-C Work Phone: [facility] 03-27-2025 11:22-0400 Diastolic blood pressure 68 mm[Hg] Marisol Ayan ELEMENTARY EDUCATION TUTOR-C Work Phone: [facility] 03-27-2025 11:22-0400 Heart rate 73 /min Marisol Ayan ELEMENTARY EDUCATION TUTOR-C Work Phone: [facility] 03-27-2025 11:22-0400 Respiratory rate 16 /min Marisol Ayan ELEMENTARY EDUCATION TUTOR-C Work Phone: [facility] 03-27-2025 11:22-0400 SaO2% (BldA) [Mass fraction] 97 % Marisol Ayan ELEMENTARY EDUCATION TUTOR-C Work Phone: [facility] 03-27-2025 11:22-0400 Systolic blood pressure 142 mm[Hg] Marisol Ayan ELEMENTARY EDUCATION TUTOR-C Work Phone: [facility] 11-26-2022 09:55-0400 Body weight 145.42 kg Katie Podlogar MEDIA CENTER DIRECTOR SCHOOL.OPTICAL BRIGHTENER MAKER HELPER Work Phone: [facility] 11-26-2022 09:55-0400 Diastolic blood pressure 70 mm[Hg] Katie Podlogar [employer] C[employer] DIRECTOR [employer]CHO[employer].OPTICAL BRIGHTENER MAKER HELPER Work Phone: [facility] 11-26-2022 09:55-0400 Heart rate 83 /min Katie Podlogar [employer] DIRECTOR [employer].OPTICAL BRIGHTENER MAKER HELPER Work Phone: [facility] 11-26-2022 09:55-0400 Respiratory rate 18 /min Katie Podlogar [employer] DIRECTOR [employer].OPTICAL BRIGHTENER MAKER HELPER Work Phone: [facility] 11-26-2022 09:55-0400 SaO2% (BldA) [Mass fraction] 96 % Katie Podlogar [employer] C[employer] DIRECTOR [employer].OPTICAL BRIGHTENER MAKER HELPER Work Phone: [facility] [facility] 11-26-2022 09:55-0400 Systolic blood pressure 118 mm[Hg] Katie Podlogar MEDIA CENTER DIRECTOR SCHOOL.OPTICAL BRIGHTENER MAKER HELPER Work Phone: [facility] 05-24-2022 15:48-0500 Body weight 143.88 kg Sharee Thornton MD Work Phone: [facility] 05-24-2022 15:48-0500 Diastolic blood pressure 82 mm[Hg] Sharee Thornton MD Work Phone: [facility] 05-24-2022 15:48-0500 Heart rate 66 /min Sharee Thornton MD Work Phone: [facility] 05-24-2022 15:48-0500 Respiratory rate 16 /min Sharee Thornton MD Work Phone: [facility] 05-24-2022 15:48-0500 SaO2% (BldA) [Mass fraction] 99 % Sharee Thornton MD Work Phone: [facility] 05-24-2022 15:48-0500 Systolic blood pressure 118 mm[Hg] Sharee Thornton MD Work Phone: [facility] 10-23-2021 18:31-0400 Body temperature 98.6 [degF] Audelia Athy PA-C Work Phone: [facility] 10-23-2021 18:31-0400 Body weight 140.34 kg Audelia Athy PA-C Work Phone: [facility] 10-23-2021 18:31-0400 Diastolic blood pressure 94 mm[Hg] Audelia Athy PA-C Work Phone: [facility] 10-23-2021 18:31-0400 Heart rate 80 /min Audelia Athy PA-C Work Phone: [facility] 10-23-2021 18:31-0400 Respiratory rate 21 /min Audelia Athy PA-C Work Phone: [facility] 10-23-2021 18:31-0400 SaO2% (BldA) [Mass fraction] 97 % Audelia Athy PA-C Work Phone: [facility] 10-23-2021 18:31-0400 Systolic blood pressure 148 mm[Hg] Audelia Athy PA-C Work Phone: [facility] 10-18-2021 15:13-0400 Body temperature 98.1 [degF] Audelia Athy PA-C Work Phone: [facility] 10-18-2021 15:130400 Body weight 139.8 kg Audelia Athy PA-C Work Phone: [facility] 10-18-2021 15:13-0400 Diastolic blood pressure 80 mm[Hg] Audelia Athy PA-C Work Phone: [facility] 10-18-2021 15:13-0400 Heart rate 77 /min Audelia Athy PA-C Work Phone: [facility] 10-18-2021 15:13-0400 Respiratory rate 18 /min Audelia Athy PA-C Work Phone: [facility] 10-18-2021 15:13-0400 SaO2% (BldA) [Mass fraction] 97 % Audelia Athy PA-C Work Phone: [facility] 10-18-2021 15:13-0400 Systolic blood pressure 118 mm[Hg] Audelia Athy PA-C Work Phone: [facility] Encounters Encounter Date Encounter Type Care Provider Facility Start: 04-28-2025 ambulatory [facility] Facility:[facility] Start: 03-27-2025 End: 03-27-2025 Patient encounter procedure Siddhartha Fields [place] -[place] [facility] Work Phone: Start: 03-27-2025 End: 03-27-2025 ambulatory [facility] Facility:[facility] Start: 06-30-2024 End: 07-31-2024 ambulatory Sharee Thornton MD Work Phone: [facility] [place] Start: 05-01-2024 End: 05-01-2024 ambulatory [facility] Facility:[facility] Start: 11-27-2023 Refill Kaite Chris APRN.CNP Work Phone: [facility] [place] Comment on above: Refill Request Start: 08-12-2023 Refill Katie Chris APRN.CNP Work Phone: [facility] Comment on above: Refill Request Start: 08-07-2023 ambulatory Sharee Thornton MD Work Phone: [facility] [place] Comment on above: Mammogram Start: 07-31-2023 ambulatory Sharee Thornton MD Work Phone: Internal Medicine [facility] [place] Start: 05-20-2023 Refill Katie Podlogar [employer] C[employer] DIRECTOR SCHOOL.OPTICAL BRIGHTENER MAKER HELPER Work Phone: [facility] Comment on above: Refill Request Start: 04-16-2023 ambulatory Katie Podlogar MEDIA CENTER DIRECTOR SCHOOL.OPTICAL BRIGHTENER MAKER HELPER Work Phone: [facility] Comment on above: Ozempic Start: 02-19-2023 Refill Katie Podlogar MEDIA CENTER DIRECTOR SCHOOL.OPTICAL BRIGHTENER MAKER HELPER Work Phone: [facility] [place] Comment on above: Refill Request Start: 11-26-2022 End: 11-26-2022 Patient encounter procedure Katie Podlogar MEDIA CENTER DIRECTOR SCHOOL.OPTICAL BRIGHTENER MAKER HELPER Work Phone: [facility] Comment on above: Essential hypertensi on, benign (Primary Dx); CLEMENTE (nonalcoholic steatohepatitis); Morbid obesity (HCC); Hyperlipidemia LDL goal <130; Gastroesophageal reflux disease, unspecified whether esophagitis present; VIKI (generalized anxiety disorder) Start: 11-12-2022 Refill Sharee Thornton MD Work Phone: [facility] Comment on above: Refill Request Start: 08-19-2022 Refill Katie Podlogar MEDIA CENTER DIRECTOR SCHOOL.OPTICAL BRIGHTENER MAKER HELPER Work Phone: [facility] [place] Comment on above: Refill Request Start: 08-09-2022 Refill Katie Podlogar MEDIA CENTER DIRECTOR SCHOOL.OPTICAL BRIGHTENER MAKER HELPER Work Phone: [facility] Comment on above: Refill Request Start: 07-19-2022 ambulatory Sharee Thornton MD Work Phone: [facility] Comment on above: motion sickness Start: 06-21-2022 End: 06-21-2022 Subsequent hospital visit by physician Screen Mammo [facility] Comment on above: Encounter for screen ing mammogram for breast cancer [Z12.31] Start: 06-21-2022 Documentation procedure Mammog adniel Coordinator [facility] Start: 06-21-2022 Letter encounter Mammography Coordinator [facility] Department Start: 05-24-2022 End: 05-24-2022 Patient encounter procedure Sharee Thornton MD Work Phone: [facility] [place] Comment on above: Essential hypertensi on, benign (Primary Dx); Hyperlipidemia LDL goal <130; CLEMENTE (nonalcoholic steatohepatitis); Morbid obesity (HCC); Situational anxiety; Gastroesophageal reflux disease, unspecified whether esophagitis present; Eczema, unspecified type; Special screening examination for viral disease; Encounter for immunization Start: 05-21-2022 Refill Sharee Thornton MD Work Phone: [facility] Comment on above: Refill Request Start: 05-02-2022 ambulatory Sharee Thornton MD Work Phone: Internal Medicine [facility] Start: 11-08-2021 Refill Sharee Thornton MD Work Phone: [facility] Comment on above: Refill Request Start: 10-23-2021 End: 10-23-2021 Patient encounter procedure Audelia Angeles PA-C Work Phone: [facility] Comment on above: Herpes zoster withou t complication (Primary Dx) Start: 10-19-2021 Telephone encounter Candy Ludwig BOYDOPTICAL BRIGHTENER MAKER HELPER Work Phone: [facility] Comment on above: Results (hsv culture s) Start: 10-19-2021 End: 10-19-2021 Patient encounter procedure Rehana Peck OD Work Phone: Ophthalmology Comment on above: Herpes zoster dermat itis of eyelid (Primary Dx) Start: 10-18-2021 End: 10-18-2021 Patient encounter procedure Audelia Angeles PA-C Work Phone: [facility] Comment on above: Herpes zoster with c omplication (Primary Dx) Procedures Date Procedure Procedure Detail Performing Clinician Start: 06-21-2022 End: 06-21-2022 Mammography Bulk Order Provider Start: 05-24-2022 INFLUENZA VACCINE QUADRIVALENT 6 MO - 64 YRS IM Sharee Thornton MD Work Phone: Start: 05-24-2022 PFIZER-BIONTECH COVI D-19 BIVALENT BOOSTER VACCINE, AGE 12+ YR Sharee Thornton MD Work Phone: Start: 03-15-2021 Mammography Audelia Angeles PA-C Work Phone: Start: 03-14-2021 Adult depression scr eening assessment Audelia Angeles PA-C Work Phone: Plan of Treatment Date Care Activity Detail Author Start: 03-31-2026 HPV TESTING HPV TESTING [facility] Start: 03-31-2026 PAP TESTING PAP TESTING [facility] Start: 03-31-2026 Screening for malign ant neoplasm of cervix [facility] Start: 03-07-2025 Urine microalbumin profile [facility] Start: 02-09-2024 Covid-19 Vaccine () Covid-19 Vaccine () [facility] Start: 02-09-2024 Influenza vaccination [facility] Start: 12-02-2023 End: 12-02-2023 Patient encounter procedure 12/02/2023 12:20 PM EDT Office Visit [facility] [address], [place] [id number] PodlogarKatie APRN.OPTICAL BRIGHTENER MAKER HELPER [address] [place] [address] follow up meds [facility] Comment on above: follow up meds Start: 11-27-2023 ANNUAL PCP TEAM WEB EDITOR COLIN DISEASE VISIT ANNUAL PCP TEAM CHRONIC DISEASE VISIT [facility] Start: 11-27-2023 BP CONTROLLED (<130/80) BP CON TROLLED (<130/80) [facility] Start: 06-21-2023 Mammography [facility] Start: 06-21-2023 Screening for malign ant neoplasm of breast Mammogram Screening [facility] Start: 06-10-2023 Behavioral Health Screening Behavioral Health Screening [facility] Start: 06-10-2023 Depression Assessment Depression Ass essment [facility] Start: 05-24-2023 ANNUAL PCP TEAM WEB EDITOR COLIN DISEASE VISIT ANNUAL PCP TEAM CHRONIC DISEASE VISIT [facility] Start: 05-24-2023 HEPATITIS B (1 of 3 - 3-dose series) HEPATITIS B (1 of 3 - 3-dose series) [facility] Comment on above: Postponed from 09/09 (Declined at this time) Start: 05-24-2023 Hepatitis B Vaccine (1 of 3 - 3-dose series) Hepatitis B Vaccine (1 of 3 - 3-dose series) [facility] Comment on above: Postponed from 09/09 (Declined at this time) Start: 02-08-2023 Covid-19 Vaccine ( season) Covid-19 Vaccine ( season) [facility] Start: 02-08-2023 Influenza vaccination Influenza Vacc ine (#1) [facility] Start: 11-26-2022 End: 01-26-2023 Comprehensive metabolic 2000 panel - Serum or Plasma [facility] Work Phone: Comment on above: Expected: 11/26/2022 , Expires: 01/26/2023 Start: 11-02-2022 ANNUAL PCP TEAM WEB EDITOR COLIN DISEASE VISIT ANNUAL PCP TEAM CHRONIC DISEASE VISIT [facility] Start: 06-10-2022 DEPRESSION ASSESSMENT DEPRESSION ASS ESSMENT [facility] Start: 03-31-2022 BP CONTROLLED (<130/80) BP CON TROLLED (<130/80) [facility] Start: 03-15-2022 Mammography MAMMOGRAM [facility] Start: 03-14-2022 Adult depression screening assessment DEPRESSION SCREENING [facility] Start: 03-14-2022 ANNUAL PCP TEAM WEB EDITOR COLIN DISEASE VISIT ANNUAL PCP TEAM CHRONIC DISEASE VISIT [facility] Start: 02-08-2022 Influenza vaccination INFLUENZA (#1) [facility] Start: 10-18-2021 End: 12-18-2021 Herpes simplex virus+Varicella zoster virus DNA [Presence] in Unspecified specimen by SANYA with probe detection [facility] Work Phone: Comment on above: Expected: 10/18/2021 , Expires: 12/18/2021 Start: 08-08-2021 COVID-19 VACCINE (4 - Booster for Pfizer series) COVID-19 VACCINE (4 - Booster for Pfizer series) [facility] Start: 06-10-2021 DEPRESSION ASSESSMENT DEPRESSION ASS ESSMENT [facility] Start: 09-09-1998 Hepatitis B Vaccine (1 of 3 - 19+ 3-dose series) Hepatitis B Vaccine (1 of 3 - 19+ 3-dose series) [facility] Start: 09-09-1997 BP CONTROLLED (<130/80) BP CON TROLLED (<130/80) [facility] Start: 09-09-1997 Depression Screening Depression Scre ening [facility] Start: 09-09-1997 HEPATITIS C SCREENING HEPATITIS C SC REENING [facility] Start: 1979 HEPATITIS B (1 of 3 - 3-dose series) HEPATITIS B (1 of 3 - 3-dose series) [facility] Start: 1979 Hepatitis B Vaccine (1 of 3 - 3-dose series) Hepatitis B Vaccine (1 of 3 - 3-dose series) [facility] End: 07-30-2025 DBT Breast - bilateral screening [facility] Rad[facility] Routine Encounter for screening mammogram for breast cancer 1 Occurrences starting 06/30/2024 until 07/30/2025 [facility] Work Phone: Comment on above: 1 Occurrences starti ng 06/30/2024 until 07/30/2025 End: 08-29-2024 MG Breast Screening [facility] Routine Encounter for screening mammogram for breast cancer 1 Occurrences starting 07/31/2023 until 08/29/2024 [facility] Work Phone: Comment on above: 1 Occurrences starti ng 07/31/2023 until 08/29/2024 End: 06-01-2023 Screening mammography bi 2-view breast inc cad [facility] Routine Encounter for screening mammogram for breast cancer 1 Occurrences starting 05/02/2022 until 06/01/2023 [facility] Work Phone: Comment on above: 1 Occurrences starti ng 05/02/2022 until 06/01/2023 [facility] Immunizations Immunization Date Immunization Notes Care Provider Isra belle 05-24-2022 COVID-19 booster vaccine, age 12+ yr, bivalent (PFIZER-BIONTBarre) Sharee Thornton MD Work Phone: [facility] 05-24-2022 influenza, injectabl e, quadrivalent, contains preservative Sharee Thornton MD Work Phone: [facility] 05-24-2022 influenza virus vaccine, unspecified formulation Katie Chris APRN.CNP Work Phone: [facility] 03-14-2021 influenza, injectabl e, quadrivalent, contains preservative Audelia Athy PA-C Work Phone: [facility] 03-07-2015 tetanus toxoid, reduced diphtheria toxoid, and acellular pertussis vaccine, adsorbed Audelia Athy PA-C Work Phone: [facility] 06-04-2012 influenza virus vaccine, unspecified formulation Audelia Athy PA-C Work Phone: [facility] Work Phone: 11-01-2003 diphtheria and tetan us toxoids, adsorbed for pediatric use Audelia Athy PA-C Work Phone: [facility] Work Phone: Payers Date Payer Category Payer Self-pay 2024 Unknown [id number] 2021 Private Health Insurance MMO [employer] PPO [id number] 2021 Unknown MMO MMO [employer] [id number] 2021-Present [phone] [address] [place] [address] PPO [id number] 2003 Government (not [facility] care or Medicaid) [facility] [id number] 2003 Unknown [id number] Unknown [id number] Unknown [id number] Unknown [id number] Unknown [id number] Social History Date Type Detail Facility Start: 11-05-2017 End: 05-24-2022 Tobacco smoking status MOIS Never smoked tobacco [facility] Start: 10-18-2021 End: 11-26-2022 Alcohol intake Current drinker of alcohol (finding) [facility] Start: 04-19-2008 History SDOH Alcohol Comment occasional,< 1/mo [facility] Start: 1980 Sex Assigned At Not on file [facility] Start: 10-09-2021 End: 11-02-2021 Exposure to SARS-CoV-2 (event) Not sure [facility] Work Phone: Start: 11-05-2017 End: 05-24-2022 Tobacco use and exposure Smokeless tobacco non-user [facility] Start: 05-23-2022 History SDOH Alcohol Frequency 2 [facility] Start: 05-23-2022 History SDOH Alcohol Std Drinks 1 [facility] Start: 05-23-2022 History SDOH Social Connections Phone 5 [facility] Start: 05-23-2022 History SDOH Social Connections Sikhism 3 [facility] Start: 05-23-2022 History SDOH Social Connections Living 7 [facility] Start: 05-23-2022 End: 11-26-2022 History of Social function [facility] Start: 05-23-2022 End: 11-26-2022 Social connection and isolation panel [facility] Do you belong to any clubs or organizations such as islam groups, unions, fraternal or athletic groups, or school groups? Yes [facility] Are you now , , , , never or living with a partner? Never [facility] How often to you hav e a drink containing alcohol? Monthly or less [facility] How many standard dr inks containing alcohol do you have on a typical day? 1 or 2 [facility] How often do you hav e 6 or more drinks on 1 occasion? Never [facility] Adult Depression Screening Assessment 0 [facility] Work Phone: Do you feel stress - tense, restless, nervous, or anxious, or unable to sleep at night because your mind is troubled all the time - these days [OSQ] Only a little [facility] (I/We) worried wheth er (my/our) food would run out before (I/we) got money to buy more. Never true [facility] In the past 12 month s, was there a time when you were not able to pay the mortgage or rent on time? No [facility] Tobacco smoking stat us MOIS Unknown if ever smoked [facility] Work Phone: Start: 1980 Sex Assigned At Female [facility] Clinical Notes 11-05-2017 to 03-27-2025 Telephone Encounter - Gladys Ross LPN - 11/27/2023 8:34 AM EDTTelephone Encounter - Gladys Ross LPN - 11/27/2023 8:34 AM Olivia Chris APRN.CNP - 11/26/2022 9:53 AM EDT Note Date & Type Note Facility 03-27-2025 Progress note [facility] 06-30-2024 Note Patient Outreach (FAMPWS) MACIE CHAVEZ ([id number]) 1980 F Date Time Provider Department 06/30/24 SHAREE THORNTON FAMPWS During your visit today, we recorded the following information about you: Allergies As of Date: 06/30/2024 Noted Allergy Reaction AVOCADO 11/17/2018 4 - Hives 14 - Other: See Comments Comments: Heart racing, and abdominal pain MOLD 07/06/2005 SEASONAL ALLERGIES 07/20/2010 9 - Itching 14 - Other: See Comments Comments: Sneezing, watery eyes Date Reviewed: 11/26/2022 Reviewed by: Yovana Garner LPN - Fully Assessed Visit Diagnosis:Encounter for screening mammogram for breast cancer [Z12.31] Order(s):[facility] [[id number]] Order #: [id number] FUTURE Prescriptions as of 07/31/2024 - citalopram hydrobromide (CELEXA) 10 mg tablet Take 1 tablet by mouth once daily. - simvastatin (ZOCOR) 20 mg tablet Take 1 tablet by mouth daily at bedtime. - lisinopril (ZESTRIL) 40 mg tablet Take 1 tablet by mouth once daily. - hydroCHLOROthiazide 12.5 mg capsule Take 1 capsule by mouth once daily. - omeprazole (PRILOSEC) 20 mg capsule Take 1 capsule by mouth once daily. - scopolamine (TRANSDERM-SCOP) patch 1.5 mg/72 hr (delivers 1 mg over 3 days) Apply 1 Patch as directed every 72 hours. Apply patch to skin behind ear 4hrs prior to travel. - vitamin B complex (B COMPLEX 1 ORAL) Take by mouth. - Ascorbic Acid (VITAMIN C WITH TRESA HIPS) 500 mg chew Take 500 mg by mouth once daily. - collagen/biotin/ascorbic acid (COLLAGEN 1500 PLUS C ORAL) Take by mouth. - triamcinolone (KENALOG) 0.025 % ointment Apply to affected area twice daily. - CALCIUM ORAL Take by mouth. - BIOTIN ORAL Take by mouth once daily. - loratadine (CLARITIN) 10 mg tablet 2 TABLETS DAILY FOR ALLERGY SYMPTOMS - THERAPEUTIC MULTIVITAMIN TAB Take one(1) tablet daily. Meds Comments as of 07/27/2016: Biotin Problem List As Of Date 06/30/2024 Noted Resolved BENIGN HYPERTENSION [I10] 04/19/2008 ESOPHAGEAL REFLUX [K21.9] 04/19/2008 MORBID OBESITY [E66.01] 04/19/2008 Other specified disorder of gallbladder [K82.8] 09/03/2008 03/26/2016 Hyperlipidemia LDL goal <130 [E78.5] 03/26/2016 Breast mass, right [N63.10] 11/05/2017 11/17/2018 Situational anxiety [F41.8] 11/05/2017 Plantar fasciitis [M72.2] 11/05/2017 11/17/2018 CLEMENTE (nonalcoholic steatohepatitis) [K75.81] Encounter Status:Closed by [email or web address] on 07/31/24 [facility] 11-27-2023 Telephone encounter Note Formatting of this note might be differe nt from the original. Patient returned call and went over notes below from Dr Thornton with understanding. Scheduled appt for 12/02/2023 with ELEMENTARY EDUCATION TUTOR. Patient said she will run out of medication asking if could still have medication refill please. [facility] 11-27-2023 [facility] Notes Formatting of this note might be differe nt from the original. Patient returned call and went over notes below from Dr Thornton with understanding. Scheduled appt for 12/02/2023 with ELEMENTARY EDUCATION TUTOR. Patient said she will run out of medication asking if could still have medication refill please. Left a message for pt to call the office and ask to speak to a nurse. Rita Oh LPN Needs to schedule OV. Prescription Refill Information The patient has been identified by name and date of : Yes Caregiver verified no other encounters exist for this prescription request: Yes Caregiver confirmed with patient/requestor that no other refills are due, in the near future, with this provider at this time: Yes The last office visit in the department: 11/26/2022 Does the patient have a future office visit with this provider/department: No, MC message sent notifying patient to schedule annual exam Requested Prescriptions Pending Prescriptions Disp Refills citalopram hydrobromide (CELEXA) 10 mg tablet 90 tablet 0 Sig: Take 1 tablet by mouth once daily. ZENOBIA Cabrales November 27, 2023 7:27 AM documented in this encounter [facility] 11-27-2023 Telephone encounter Note Formatting of this note might be differe nt from the original. Left a message for pt to call the office and ask to speak to a nurse. Rita Oh LPN [facility] 11-27-2023 Telephone encounter Note Formatting of this note might be differe nt from the original. Needs to schedule OV. [facility] 11-27-2023 Telephone encounter Note Formatting of this note is different fro m the original. Prescription Refill Information The patient has been identified by name and date of : Yes Caregiver verified no other encounters exist for this prescription request: Yes Caregiver confirmed with patient/requestor that no other refills are due, in the near future, with this provider at this time: Yes The last office visit in the department: 11/26/2022 Does the patient have a future office visit with this provider/department: No, MC message sent notifying patient to schedule annual exam Requested Prescriptions Pending Prescriptions Disp Refills citalopram hydrobromide (CELEXA) 10 mg tablet 90 tablet 0 Sig: Take 1 tablet by mouth once daily. ZENOBIA Cabrales November 27, 2023 7:27 AM [facility] 08-12-2023 [facility] Notes Formatting of this note is different fro m the original. Patient has been identified by name and date of : Yes, Provider Sharee Thornton MD Date August 12, 2023 Time 11:35 AM Patient phones for refill(s): Requested Prescriptions Pending Prescriptions Disp Refills simvastatin (ZOCOR) 20 mg tablet 90 tablet 1 Sig: Take 1 tablet by mouth daily at bedtime. lisinopril (ZESTRIL) 40 mg tablet 90 tablet 1 Sig: Take 1 tablet by mouth once daily. hydroCHLOROthiazide 12.5 mg capsule 90 capsule 1 Sig: Take 1 capsule by mouth once daily. omeprazole (PRILOSEC) 20 mg capsule 90 capsule 1 Sig: Take 1 capsule by mouth once daily. citalopram hydrobromide (CELEXA) 10 mg tablet 90 tablet 0 Sig: Take 1 tablet by mouth once daily. Date of last office visit in primary care: 11/26/2022 Date of next office visit in primary care: none Please advise. Thank you. Fabiana Dawn Ma. documented in this encounter [facility] 05-21-2023 [facility] Notes Formatting of this note is different fro m the original. Patient phones requesting refills as follows: Requested Prescriptions Pending Prescriptions Disp Refills citalopram hydrobromide (CELEXA) 10 mg tablet 90 tablet 0 Sig: Take 1 tablet by mouth once daily. MARITZA 11/26/2022 NOV 05/28/2023 Please review and advise. Yovana Garner LPN documented in this encounter [facility] 02-19-2023 [facility] Notes Formatting of this note is different fro m the original. Patient has been identified by name and date of : Yes Patient phones for refill(s): Requested Prescriptions Pending Prescriptions Disp Refills citalopram hydrobromide (CELEXA) 10 mg tablet 90 tablet 0 Sig: Take 1 tablet by mouth once daily. scopolamine (TRANSDERM-SCOP) patch 1.5 mg/72 hr (delivers 1 mg over 3 days) 4 Patch 1 Sig: Apply 1 Patch as directed every 72 hours. Apply patch to skin behind ear 4hrs prior to travel. Date of last office visit in primary care: 11/26/2022 Please advise. Thank you. Sho Tao LPN documented in this encounter [facility] 02-19-2023 Heather willis Notes Formatting of this note is different fro m the original. Patient phones requesting refills as follows: Requested Prescriptions Pending Prescriptions Disp Refills simvastatin (ZOCOR) 20 mg tablet 90 tablet 1 Sig: Take 1 tablet by mouth daily at bedtime. lisinopril (ZESTRIL) 40 mg tablet 90 tablet 1 Sig: Take 1 tablet by mouth once daily. hydroCHLOROthiazide 12.5 mg capsule 90 capsule 1 Sig: Take 1 capsule by mouth once daily. omeprazole (PRILOSEC) 20 mg capsule 90 capsule 1 Sig: Take 1 capsule by mouth once daily. MARITZA 11/26/22 JANET NOV 05/28/23 CB Please review and advise. Moses Darden LPN documented in this encounter [facility] 11-26-2022 History of Present illness Narrative Formatting of this note is different fro m the original. 11/26/2022 Patient presents with: F/U 6 Month SUBJECTIVE: This is a 42 year old that is here today for Above Complaints. Since last office visit has been in good health without ER visits or hospitalizations. HTN: Patient is compliant with meds Yes Monitors bp at home: No. Denies side effects: No. Chest pain: No. Dyspnea: No. Edema: No. Palpitations: No. Syncope: No. Headache: No. Dizziness: No. GERD: taking omeprazole as ordered without side effects. Symptoms controlled on current dose ANXIETY: taking citalopram as prescribed without side effects WEIGHT: In the past was able to lose 40# on keto diet but eventually gained in all back. Reports she works out several times a week doing cardio dance classes and is seeing a geriatric personal care aide. Would like to discuss weight loss meds HYPERLIPIDEMIA: Patient is taking medications: Yes. Patient is watching diet: Yes. Patient denies myalgias: Yes. Patient denies gi upset: Yes PAST MEDICAL HISTORY Diagnosis Date Allergic rhinitis Anxiety Breast mass, right 11/05/2017 Bursitis of hip Eczema Esophageal reflux Essential hypertension, benign Herpes zoster without complication 10/18/2021 Hyperlipidemia 06/05/2012 Morbid obesity (HCC) CLEMENTE (nonalcoholic steatohepatitis) Plantar fasciitis 11/05/2017 left ALLERGIES Avocado, Mold, and Seasonal Allergies MEDICATIONS Current Outpatient Medications Medication Sig citalopram hydrobromide (CELEXA) 10 mg tablet Take 1 tablet by mouth once daily. simvastatin (ZOCOR) 20 mg tablet Take 1 tablet by mouth daily at bedtime. lisinopril (ZESTRIL) 40 mg tablet Take 1 tablet by mouth once daily. hydroCHLOROthiazide 12.5 mg capsule Take 1 capsule by mouth once daily. omeprazole (PRILOSEC) 20 mg capsule Take 1 capsule by mouth once daily. scopolamine (TRANSDERM-SCOP) patch 1.5 mg/72 hr (delivers 1 mg over 3 days) Apply 1 Patch as directed every 72 hours. Apply patch to skin behind ear 4hrs prior to travel. vitamin B complex (B COMPLEX 1 ORAL) Take by mouth. Ascorbic Acid (VITAMIN C WITH TRESA HIPS) 500 mg chew Take 500 mg by mouth once daily. collagen/biotin/ascorbic acid (COLLAGEN 1500 PLUS C ORAL) Take by mouth. triamcinolone (KENALOG) 0.025 % ointment Apply to affected area twice daily. CALCIUM ORAL Take by mouth. BIOTIN ORAL Take by mouth once daily. loratadine (CLARITIN) 10 mg tablet 2 TABLETS DAILY FOR ALLERGY SYMPTOMS (Patient taking differently: as needed. 2 TABLETS DAILY FOR ALLERGY SYMPTOMS) THERAPEUTIC MULTIVITAMIN TAB Take one(1) tablet daily. No current facility-administered medications for this visit. Medications and allergies reviewed by this provider. SOCIAL HISTORY Social History Tobacco Use Smoking status: Never Smokeless tobacco: Never Vaping Use Vaping Use: Never used Substance Use Topics Alcohol use: Yes Comment: occasional,< 1/mo Drug use: No REVIEW OF SYSTEMS All other reviewed and negative other than HPI. OBJECTIVE: BP 118/70 Pulse 83 Resp 18 Wt (!) 145.4 kg (320 lb 9.6 oz) LMP 05/23/2022 (Approximate) SpO2 96% BMI 50.21 kg/m . Vital signs reviewed by this provider. APPEARANCE Well appearing, alert, in no acute distress, well-hydrated, well nourished. EYES conjunctiva and sclera normal. HEART RRR with normal S1 and S2, no murmurs, no gallops, no JVD appreciated LUNG clear to auscultation. No wheezes, rhonchi or rales EXTREMITIES Extremities normal, No deformities, No skin discoloration, and No edema SKIN Skin color, texture, turgor normal, no suspicious rashes or lesions to exposed skin Component Latest Ref Rng & Units 05/24/2022 WBC 3.70 - 11.00 k/uL 10.17 RBC 3.90 - 5.20 m/uL 4.15 Hemoglobin 11.5 - 15.5 g/dL 12.6 Hematocrit 36.0 - 46.0 % 38.4 MCV 80.0 - 100.0 fL 92.5 MCH 26.0 - 34.0 pg 30.4 MCHC 30.5 - 36.0 g/dL 32.8 RDW-CV 11.5 - 15.0 % 12.8 Platelet Count 150 - 400 k/uL 310 MPV 9.0 - 12.7 fL 10.3 Neut% % 61.0 Abs Neut (ANC) 1.45 - 7.50 k/uL 6.21 Lymph% % 25.1 Abs Lymph 1.00 - 4.00 k/uL 2.55 Cache% % 10.2 Abs Cache <0.87 k/uL 1.04 (H) Eosin% % 2.7 Abs Eosin <0.46 k/uL 0.27 Baso% % 0.8 Abs Baso <0.11 k/uL 0.08 Immature Gran % % 0.2 IMMATURE GRANS (ABS) <0.10 k/uL <0.03 NRBC /100 WBC 0.0 Absolute nRBC <0.01 k/uL <0.01 DTYPE Auto Protein, Total 6.3 - 8.0 g/dL 7.1 Albumin 3.9 - 4.9 g/dL 4.3 Calcium 8.5 - 10.2 mg/dL 9.5 Bilirubin, Total 0.2 - 1.3 mg/dL 0.2 Alkaline Phosphatase 34 - 123 U/L 36 AST 13 - 35 U/L 43 (H) ALT 7 - 38 U/L 70 (H) Glucose 74 - 99 mg/dL 79 BUN 7 - 21 mg/dL 15 Creatinine 0.58 - 0.96 mg/dL 0.75 Sodium 136 - 144 mmol/L 138 Potassium 3.7 - 5.1 mmol/L 4.3 Chloride 97 - 105 mmol/L 103 CO2 22 - 30 mmol/L 24 Anion Gap 9 - 18 mmol/L 11 eGFR >=60 mL/min/1.73m 102 Total Cholesterol, Nonfasting <200 mg/dL 153 Triglycerides, Nonfasting <150 mg/dL 179 (H) HDL Cholesterol, Nonfasting >39 mg/dL 48 LDL Cholesterol, Nonfasting <100 mg/dL 69 Non HDL Cholesterol, Nonfasting <130 mg/dL 105 VLDL Cholesterol, Nonfasting <30 mg/dL 36 (H) Total Chol/HDL Ratio, Nonfasting <5.10 mg/dL 3.19 LDL/HDL Ratio, Nonfasting <2.54 mg/dL 1.44 Hemoglobin A1C 4.3 - 5.6 % 5.2 Estimated Average Glucose mg/dL 103 Hep C Antibody IA Negative Negative DEPRESSION ASSESSMENT due on 06/10/2022 HEPATITIS B(1 of 3 - 3-dose series) due on 05/24/2023 ANNUAL PCP TEAM CHRONIC DISEASE VISIT due on 05/24/2023 MAMMOGRAM due on 06/21/2023 BP CONTROLLED (<130/80) due on 11/27/2023 DTAP,TDAP,TD(3 - Td or Tdap) due on 03/07/2025 PAP TESTING due on 03/31/2026 HPV TESTING due on 03/31/2026 INFLUENZA Completed HEPATITIS C SCREENING Completed HIV SCREENING Completed COVID-19 VACCINE Completed ASSESSMENT/PLAN: 1. Essential hypertension, benign - ICD9: 401.1, ICD10: I10 (primary diagnosis) - Controlled - Continue current medications - Recommend home blood pressure monitoring, to bring results to next visit - Encouraged sodium restriction, DASH or Mediterranean diet - Recommend regular aerobic exercise - Discussed need for and benefit of weight loss. BMI 50.21 kg/(m^2) - Follow up in 6 months for hypertension visit 2. CLEMENTE (nonalcoholic steatohepatitis) - ICD9: 571.8, ICD10: K75.81 - recommend low saturated fat diet, avoid acetaminophen products and alcohol - COMP METABOLIC PANEL 3. Morbid obesity (HCC) - ICD9: 278.01, ICD10: E66.01 Weight increasing - Behavioral intervention - discussed weight loss medications in detail- patient would like to try semaglutide if insurance will pay. She will check to see what they cover. Also discussed contrave or topiramate as other options. Benefits, risk and potential side effects on medications discussed with patient, she verbalizes understanding - continue low saturated fat and low carb diet and at least 150 minutes of exercise per week 4. Hyperlipidemia LDL goal <130 - ICD9: 272.4, ICD10: E78.5 - Controlled - Continue current medications - Counseled on healthy diet and regular exercise - Discussed need for and benefit of weight loss. BMI 50.21 kg/(m^2) - Follow up in 6 months, sooner should any other issues arise. 5. Gastroesophageal reflux disease, unspecified whether esophagitis present - ICD9: 530.81, ICD10: K21.9 - stable on current regime - follow-up as needed 6. VIKI (generalized anxiety disorder) - ICD9: 300.02, ICD10: F41.1 - stable on current regime - follow-up as needed Katie Chris APRN.CNP Prescription instructions reviewed with patient as applicable. Patient advised if symptoms do not improve or if symptoms worsen sooner, to contact their primary care physician. Potential red flag symptoms discussed with the patient. Reviewed appropriate action plan to take if red flag symptoms occur. Patient agreeable to treatment plan. I spent a total of 30 minutes on the date of the service which included preparing to see the patient, [id number] patient care, completing clinical documentation, obtaining and/or reviewing separately obtained history, performing a medically appropriate examination, counseling and educating the patient/family/caregiver, and ordering medications, tests, or procedures. documented in this encounter [facility] 11-12-2022 Heather willis Notes Formatting of this note is different fro m the original. Patient has been identified by name and date of : Yes Patient phones for refill(s): Requested Prescriptions Pending Prescriptions Disp Refills citalopram hydrobromide (CELEXA) 10 mg tablet 90 tablet 0 Sig: Take 1 tablet by mouth once daily. Refused Prescriptions Disp Refills omeprazole (PRILOSEC) 20 mg capsule 90 capsule 1 Sig: Take 1 capsule by mouth once daily. Date of last office visit in primary care: [facility] 05/24/22 Appointment scheduled 11/26/22 Last 2 Encounter Wt Readings: Date: Wt: 05/24/2022 143.9 kg (317 lb 3.2 oz) 10/23/2021 140.3 kg (309 lb 6.4 oz) Please advise. Thank you. ZENOBIA Cabrales documented in this encounter [facility] 08-20-2022 [facility] Notes Formatting of this note is different fro m the original. The following approved medication requests have been transmitted electronically. Requested Prescriptions Pending Prescriptions Disp Refills simvastatin (ZOCOR) 20 mg tablet 90 tablet 1 Sig: Take 1 tablet by mouth daily at bedtime. lisinopril (ZESTRIL) 40 mg tablet 90 tablet 1 Sig: Take 1 tablet by mouth once daily. hydroCHLOROthiazide 12.5 mg capsule 90 capsule 1 Sig: Take 1 capsule by mouth once daily. omeprazole (PRILOSEC) 20 mg capsule 90 capsule 1 Sig: Take 1 capsule by mouth once daily. Harpal Olmstead APRN.CNP Last office visit: 05/24/22 F/u scheduled: 11/26/22 Fabiana Dawn Ma documented in this encounter [facility] 08-09-2022 [facility] Notes Formatting of this note is different fro m the original. Patient phones requesting refills as follows: Requested Prescriptions Pending Prescriptions Disp Refills citalopram hydrobromide (CELEXA) 10 mg tablet 90 tablet 0 Sig: Take 1 tablet by mouth once daily. MARITZA 05/24/22 NOV 11/26/22 Please review and advise. Tiana Yeboah LPN documented in this encounter [facility] 06-21-2022 Heather willis Notes Formatting of this note might be differe nt from the original. June 21, 2022 PID: [id number] Macie Chavez [address] [place] [address] Dear Ms. Chavez, We are pleased to inform you that the results of your recent breast imaging exam on 06/21/2022 are normal. Early detection of cancer is very important. We also understand recommendations regarding breast cancer screening are controversial. Please discuss with your primary care provider which strategy is best for you and whether a mammogram is right for you. Your imaging studies and report will be kept on file at [facility] as part of your permanent medical record and are available for your continuing care. Thank you for allowing us to help in meeting your health care needs. Sincerely, Dr. Hilton Interpreting Radiologist [facility] (Normal over 40) documented in this encounter [facility] 06-21-2022 History of Present illness Narrative Formatting of this note might be differe nt from the original. Radiology Service Progress Note PATIENT NAME: Macie Chavez DATE OF SERVICE: June 21, 2022 TIME: 2:48 PM PATIENT IDENTITY VERIFICATION COMPLETED USING TWO (2) IDENTIFIERS: Name and Date of confirmed by patient verbally. FALL SCREENING: Has the patient had 2 falls in the last year or 1 fall with injury or currently using an Ambulatory Assistive Device (Walker, Cane, Wheelchair, Crutches, etc.)? No PATIENT GENDER DATA: Female. status: : No status: NO. PATIENT RELEVANT IMPLANT DATA REVIEWED: Not Applicable RADIOLOGY DEPARTMENT: Mammography PERIPHERAL IV DATA: Not applicable SIGNED BY: RT Poonam(R) June 21, 2022 2:48 PM documented in this encounter [facility] 05-24-2022 History of Present illness Narrative Formatting of this note is different fro m the original. Chief Complaint Patient presents with: Follow Up: 6 month HPI Macie Chavez is a 41 year old female who presents here today for 6 month follow up. Shingles rash cleared up after our last OV in October. No post herpetic neuralgia. Requesting refill of steroid cream for mild/moderate eczema. Has rash on left arm and leg today. Had COVID about a month ago and symptoms are now completely resolved. Would like booster today as well as influenza vaccine. Anxiety well controlled with Celexa without side effects. Denies SI/HI, panic symptoms. Would like to continue current regimen. BP well controlled in lisinopril/HCTZ. GERD: controlled on her Omeprazole 20 mg daily. Symptoms return if missing dose or with acidic foods. PHQ-2 / Depression screen He in the past two weeks denies having felt down, depressed, hopeless or with little interest or pleasure in doing things. Past medical history, appointments, medications, allergies reviewed. Previous Medical History PAST MEDICAL HISTORY Diagnosis Date Allergic rhinitis Anxiety Breast mass, right 11/05/2017 Bursitis of hip Esophageal reflux Essential hypertension, benign Herpes zoster without complication 10/18/2021 Hyperlipidemia 06/05/2012 Morbid obesity (HCC) CLEMENTE (nonalcoholic steatohepatitis) Plantar fasciitis 11/05/2017 left Previous Surgical History PAST SURGICAL HISTORY Procedure Laterality Date TONSILLECTOMY PRIMARY/SECONDARY <AGE 12 Family History FAMILY HISTORY Problem Relation Age of Onset other (ovarian cyst [Other]) Mother also ovarian tumor Cancer Father cancer of larynx Coronary Artery Disease Father 50 CABG 4, [place] Diabetes Father No Known Problems Sister No Known Problems Brother No Known Problems Brother Coronary Artery Disease Maternal Grandmother Cancer Maternal Grandmother gastric Coronary Artery Disease Maternal Grandfather Cancer Maternal Grandfather bone Coronary Artery Disease Paternal Grandmother Diabetes Paternal Grandmother Coronary Artery Disease Paternal Grandfather Stroke Paternal Grandfather Patient Allergies ALLERGIES Allergen Reactions Avocado Hives, Other: See Comments Heart racing, and abdominal pain Mold Seasonal Allergies Itching, Other: See Comments Sneezing, watery eyes Current Medications Current Outpatient Medications on File Prior to Visit Medication Sig vitamin B complex (B COMPLEX 1 ORAL) Take by mouth. Ascorbic Acid (VITAMIN C WITH TRESA HIPS) 500 mg chew Take 500 mg by mouth once daily. collagen/biotin/ascorbic acid (COLLAGEN 1500 PLUS C ORAL) Take by mouth. triamcinolone (KENALOG) 0.025 % ointment Apply to affected area twice daily. simvastatin (ZOCOR) 20 mg tablet Take 1 tablet by mouth daily at bedtime. lisinopril (ZESTRIL, PRINIVIL) 40 mg tablet Take 1 tablet by mouth once daily. hydroCHLOROthiazide (HYDRODIURIL, ESIDRIX) 12.5 mg capsule Take 1 capsule by mouth once daily. omeprazole (PRILOSEC) 20 mg capsule Take 1 capsule by mouth once daily. citalopram hydrobromide (CELEXA) 10 mg tablet Take 1 tablet by mouth once daily. CALCIUM ORAL Take by mouth. BIOTIN ORAL Take by mouth once daily. loratadine (CLARITIN) 10 mg tablet 2 TABLETS DAILY FOR ALLERGY SYMPTOMS (Patient taking differently: as needed. 2 TABLETS DAILY FOR ALLERGY SYMPTOMS) THERAPEUTIC MULTIVITAMIN TAB Take one(1) tablet daily. No current facility-administered medications on file prior to visit. Social History Social History Tobacco Use Smoking status: Never Smokeless tobacco: Never Vaping Use Vaping Use: Never used Substance Use Topics Alcohol use: Yes Comment: occasional,< 1/mo Drug use: No Review of Symptoms REVIEW OF SYSTEMS GENERAL: No weight loss, malaise or fevers RESPIRATORY: Negative for cough, hemoptysis, wheezing, COPD, dyspnea or shortness of breath CARDIOVASCULAR: Negative for chest pain, leg swelling, hypertension, CHF or palpitations GI: No nausea, vomiting, or diarrhea SKIN: Negative for lesions, rash, and itching EXAM: BP 118/82 Pulse 66 Resp 16 Wt (!) 143.9 kg (317 lb 3.2 oz) LMP 05/23/2022 (Approximate) SpO2 99% BMI 49.68 kg/m General Appearance: Well appearing, alert, in no acute distress, well-hydrated, well nourished. Morbid obesity. Skin: Mild eczema rash about the size of a dime on left upper arm Lungs: Lungs clear to auscultation. No wheezing, rhonchi, rales.. Heart: RRR without murmur, gallop, or rubs. No ectopy. Abdomen: Normal abdominal exam, Abdomen soft, non-tender. Bowel sounds normal. No masses, organomegaly. Extremities: No deformities, edema, skin discoloration, clubbing or cyanosis. Good capillary refill. . Health Maintenance List HEPATITIS B(1 of 3 - 3-dose series) Never done HEPATITIS C SCREENING Never done BP CONTROLLED (<130/80) Never done DEPRESSION ASSESSMENT Never done COVID-19 VACCINE(4 - Booster for Pfizer series) due on 08/08/2021 INFLUENZA(1) due on 02/08/2022 MAMMOGRAM due on 03/15/2022 ANNUAL PCP TEAM CHRONIC DISEASE VISIT due on 11/02/2022 DTAP,TDAP,TD(3 - Td or Tdap) due on 03/07/2025 PAP TESTING due on 03/31/2026 HPV TESTING due on 03/31/2026 HIV SCREENING Completed Data reviewed Component Latest Ref Rng & Units 03/15/2021 Protein, Total 6.3 - 8.0 g/dL 6.9 Albumin 3.9 - 4.9 g/dL 4.2 Calcium 8.5 - 10.2 mg/dL 9.4 Bilirubin, Total 0.2 - 1.3 mg/dL 0.4 Alkaline Phosphatase 34 - 123 U/L 36 AST 13 - 35 U/L 35 Glucose 74 - 99 mg/dL 111 (H) BUN 7 - 21 mg/dL 11 Creatinine 0.58 - 0.96 mg/dL 0.74 Sodium 136 - 144 mmol/L 137 Potassium 3.7 - 5.1 mmol/L 3.4 (L) Chloride 97 - 105 mmol/L 103 CO2 22 - 30 mmol/L 23 Anion Gap 9 - 18 mmol/L 11 ALT 7 - 38 U/L 53 (H) eGFR- >60 eGFR-All Other Races . >60 WBC 3.70 - 11.00 k/uL 9.38 RBC 3.90 - 5.20 m/uL 4.22 Hemoglobin 11.5 - 15.5 g/dL 12.8 Hematocrit 36.0 - 46.0 % 37.3 MCV 80.0 - 100.0 fL 88.4 MCH 26.0 - 34.0 pG 30.3 MCHC 30.5 - 36.0 g/dL 34.3 RDW-CV 11.5 - 15.0 % 12.8 Platelet Count 150 - 400 k/uL 314 MPV 9.0 - 12.7 fL 9.4 Absolute nRBC <0.01 k/uL <0.01 Total Cholesterol, Nonfasting <200 mg/dL 160 Triglycerides, Nonfasting <150 mg/dL 149 HDL Cholesterol, Nonfasting >39 mg/dL 51 LDL Cholesterol, Nonfasting <100 mg/dL 79 Non HDL Cholesterol, Nonfasting <130 mg/dL 109 VLDL Cholesterol, Nonfasting <30 mg/dL 30 (H) Total Chol/HDL Ratio, Nonfasting <5.10 mg/dL 3.14 LDL/HDL Ratio, Nonfasting <2.54 mg/dL 1.55 Hemoglobin A1C 4.3 - 5.6 % 5.4 Estimated Average Glucose mg/dL 108 ASSESSMENT/PLAN: 1. Essential hypertension, benign - ICD9: 401.1, ICD10: I10 (primary diagnosis) - good control - Continue current medication(s) - Encouraged dietary sodium restriction/DASH diet - Recommended regular aerobic exercise. - Reviewed risks of HTN and principles of treatment - Goal of BP <140/90 - COMP METABOLIC PANEL - CBC + DIFF 2. Hyperlipidemia LDL goal <130 - ICD9: 272.4, ICD10: E78.5 - to be determined upon return of lab results - Continue current medication. - Encouraged following a low fat, low cholesterol diet. - Discussed the benefits of regular aerobic exercise and weight loss. - LIPID PANEL, NONFASTING 3. CLEMENTE (nonalcoholic steatohepatitis) - ICD9: 571.8, ICD10: K75.81 Check LFTs. Work on weight loss. - COMP METABOLIC PANEL - LIPID PANEL, NONFASTING 4. Morbid obesity (HCC) - ICD9: 278.01, ICD10: E66.01 Weight increasing - Behavioral intervention - HGB A1C 5. Situational anxiety - ICD9: 300.09, ICD10: F41.8 Controlled on Celexa. 6. Gastroesophageal reflux disease, unspecified whether esophagitis present - ICD9: 530.81, ICD10: K21.9 - Continue treatment with Prilosec 20 mg QD 7. Eczema, unspecified type - ICD9: 692.9, ICD10: L30.9 - Topical steriod tx with Rx for steriod cream/ointment- see orders - discussed skin care of rash - follow up if symptoms persist or worsen. - TRIAMCINOLONE ACETONIDE 0.1 % TOPICAL OINTMENT 8. Special screening examination for viral disease - ICD9: V73.99, ICD10: Z11.59 - HEP C AB IA W/CONF SCRN 9. Encounter for immunization - ICD9: V03.89, ICD10: Z23 - PFIZER-BIONTECH COVID-19 BIVALENT BOOSTER VACCINE, AGE 12+ YR - INFLUENZA VACCINE QUADRIVALENT 6 MO - 64 YRS IM Sharee Thornton MD documented in this encounter [facility] 05-22-2022 [facility] Notes Formatting of this note might be differe nt from the original. Patient calls and notified that follow up visit needs made. Patient set up follow up visit with Dr. Thornton 05/24/2022. Chen Armando RN Left a message for pt to call the office and ask to speak to a nurse. Rita Oh LPN Patient is due for routine follow-up. Please assist in scheduling. Katie Chris APRN.KEE Pharmacy verified in [facility] Patient has been identified by name and date of : Yes Patient aware RX will be sent to pharmacy. No need to notify patient. Patient phones for refill(s): Requested Prescriptions Pending Prescriptions Disp Refills simvastatin (ZOCOR) 20 mg tablet 90 tablet 1 Sig: Take 1 tablet by mouth daily at bedtime. lisinopril (ZESTRIL, PRINIVIL) 40 mg tablet 90 tablet 1 Sig: Take 1 tablet by mouth once daily. hydroCHLOROthiazide (HYDRODIURIL, ESIDRIX) 12.5 mg capsule 90 capsule 1 Sig: Take 1 capsule by mouth once daily. omeprazole (PRILOSEC) 20 mg capsule 90 capsule 1 Sig: Take 1 capsule by mouth once daily. citalopram hydrobromide (CELEXA) 10 mg tablet 90 tablet 3 Sig: Take 1 tablet by mouth once daily. Date of last office visit : 11/02/2021 Date of next office visit : Visit date not found Last 2 Encounter Wt Readings: Date: Wt: 10/23/2021 140.3 kg (309 lb 6.4 oz) 10/18/2021 139.8 kg (308 lb 3.2 oz) Not applicable Please advise. Silvina Sales Pss documented in this encounter [facility] 11-08-2021 Heather willis Notes Last refill 05/31/21 Qty: 90 with 1 refill MARITZA 11/02/21 NOV None Khushbu Montoya LPN Patient has been identified by name and date of : Yes Pending Prescriptions Disp Refills HYDROCHLOROTHIAZIDE 12.5 MG CAPSULE 90 capsule 1 Sig: Take 1 capsule by mouth once daily. ERIN: No LISINOPRIL 40 MG TABLET 90 tablet 1 Sig: Take 1 tablet by mouth once daily. ERIN: No OMEPRAZOLE 20 MG CAPSULE,DELAYED RELEASE 90 capsule 1 Sig: Take 1 capsule by mouth once daily. ERIN: No SIMVASTATIN 20 MG TABLET 90 tablet 1 Sig: Take 1 tablet by mouth daily at bedtime. ERIN: No RX INSTRUCTIONS: Pharmacy initiated this request. No need to notify patient. Prema Llanos Pss documented in this encounter [facility] 10-23-2021 History of Present illness Narrative Images from the original note were not included. This note was created using [employer]. Subjective Macie Chavez is a 41 year old female. HPI Patient presents for a follow-up for shingles. She has been on antivirals for the past 5 to 6 days. She has had significant improvement in her symptoms. Her lesions of are scabbed over and the swelling has gone down. She states she still has some pain in her face but it is better than it was before. She would like a note to return to work as well. She denies any pain in her eye or redness. She did see ophthalmology the next day and did not have any dendritic lesions or signs of eye involvement. Review of Systems Skin: Positive for rash. All other systems reviewed and are negative. PAST MEDICAL HISTORY Diagnosis Date Allergic rhinitis Anxiety Breast mass, right 11/05/2017 Bursitis of hip Esophageal reflux Essential hypertension, benign Hyperlipidemia 06/05/2012 Morbid obesity (HCC) CLEMENTE (nonalcoholic steatohepatitis) Plantar fasciitis 11/05/2017 left Current Outpatient Medications Medication Sig Dispense Refill valACYclovir (VALTREX) 1 gram Take 1 tablet by mouth three times daily for 7 days. 21 tablet 0 citalopram hydrobromide (CELEXA) 10 mg tablet Take 1 tablet by mouth once daily. 90 tablet 3 hydroCHLOROthiazide 12.5 mg capsule Take 1 capsule by mouth once daily. 90 capsule 1 lisinopril (ZESTRIL, PRINIVIL) 40 mg tablet Take 1 tablet by mouth once daily. 90 tablet 1 omeprazole (PRILOSEC) 20 mg capsule Take 1 capsule by mouth once daily. 90 capsule 1 simvastatin (ZOCOR) 20 mg tablet Take 1 tablet by mouth daily at bedtime. 90 tablet 1 CALCIUM ORAL Take by mouth. BIOTIN ORAL Take by mouth once daily. loratadine (CLARITIN) 10 mg tablet 2 TABLETS DAILY FOR ALLERGY SYMPTOMS (Patient taking differently: as needed. 2 TABLETS DAILY FOR ALLERGY SYMPTOMS ) THERAPEUTIC MULTIVITAMIN TAB Take one(1) tablet daily. 0 No current facility-administered medications for this visit. PAST SURGICAL HISTORY Procedure Laterality Date TONSILLECTOMY PRIMARY/SECONDARY <AGE 11 FAMILY HISTORY Problem Relation Age of Onset other (ovarian cyst [Other]) Mother also ovarian tumor Cancer Father cancer of larynx Coronary Artery Disease Father 50 CABG 4, [place] Diabetes Father No Known Problems Sister No Known Problems Brother No Known Problems Brother Coronary Artery Disease Maternal Grandmother Cancer Maternal Grandmother gastric Coronary Artery Disease Maternal Grandfather Cancer Maternal Grandfather bone Coronary Artery Disease Paternal Grandmother Diabetes Paternal Grandmother Coronary Artery Disease Paternal Grandfather Stroke Paternal Grandfather Social History Tobacco Use Smoking status: Never Smoker Smokeless tobacco: Never Used Vaping Use Vaping Use: Never used Substance Use Topics Alcohol use: Yes Comment: occasional,< 1/mo Drug use: No Objective BP 148/94 Pulse 80 Temp 37 C (98.6 F) Resp 21 Wt (!) 140.3 kg (309 lb 6.4 oz) LMP 03/25/2021 SpO2 97% BMI 48.46 kg/m Physical Exam Vitals reviewed. Constitutional: Appearance: Normal appearance. HENT: Head: Normocephalic and atraumatic. Comments: Patient has 2 small scabs to the left of the bridge of the nose. No erythema surrounding. Much better appearing than on the 12th when she was seen by myself. The eyelid lesions are also smaller on the left upper eyelid. No injection of the sclera. No pain with extraocular movements. No conjunctival swelling. Neurological: Mental Status: She is alert. Assessment and Plan ASSESSMENT/PLAN: 1. Herpes zoster without complication - ICD9: 053.9, ICD10: B02.9 Appears to be improving. Given note to go back to work tomorrow. Recommended finishing the last of the Valtrex. Patient agreeable. Audelia Angeles PA-C documented in this encounter [facility] 10-19-2021 [facility] Notes This ELEMENTARY EDUCATION TUTOR called patient at [phone] and identified with name and . Informed of negative culture, however as discussed at visit, may have been too dry to obtain accurate result Continue Valtrex Follow up with PCP as needed All questions answered. Candy Munroe CNP documented in this encounter [facility] 10-19-2021 History of Present illness Narrative 1. Herpes zoster dermatitis of eyelid Lid involvement only No ocular or intraocular involevement Continue taking Valtrex as prescribed Follow-up with any redness, blurred vision, irritation, pain, +increase in light sensitivity or if lesion develops on tip of nose Otherwise, follow-up as needed Rehana Peck, AYAN October 19, 2021 10:35 AM documented in this encounter [facility] 10-18-2021 History of Present illness Narrative Images from the original note were not included. This note was created using [employer]. Subjective Macie Chavez is a 41 year old female. HPI Patient presents with rash on her face for 1 day. Painful. Started on her nose and spread to her eyelid and she has pain radiating to her cheek and behind her ear. History of chickenpox as a child. She denies fever or chills. No other new exposures. Review of Systems Eyes: Negative for pain and redness. Skin: Positive for rash. All other systems reviewed and are negative. PAST MEDICAL HISTORY Diagnosis Date Allergic rhinitis Anxiety Breast mass, right 11/05/2017 Bursitis of hip Esophageal reflux Essential hypertension, benign Hyperlipidemia 06/05/2012 Morbid obesity (HCC) CLEMENTE (nonalcoholic steatohepatitis) Plantar fasciitis 11/05/2017 left Current Outpatient Medications Medication Sig Dispense Refill citalopram hydrobromide (CELEXA) 10 mg tablet Take 1 tablet by mouth once daily. 90 tablet 3 hydroCHLOROthiazide 12.5 mg capsule Take 1 capsule by mouth once daily. 90 capsule 1 lisinopril (ZESTRIL, PRINIVIL) 40 mg tablet Take 1 tablet by mouth once daily. 90 tablet 1 omeprazole (PRILOSEC) 20 mg capsule Take 1 capsule by mouth once daily. 90 capsule 1 simvastatin (ZOCOR) 20 mg tablet Take 1 tablet by mouth daily at bedtime. 90 tablet 1 CALCIUM ORAL Take by mouth. BIOTIN ORAL Take by mouth once daily. loratadine (CLARITIN) 10 mg tablet 2 TABLETS DAILY FOR ALLERGY SYMPTOMS (Patient taking differently: as needed. 2 TABLETS DAILY FOR ALLERGY SYMPTOMS ) THERAPEUTIC MULTIVITAMIN TAB Take one(1) tablet daily. 0 valACYclovir (VALTREX) 1 gram Take 1 tablet by mouth three times daily for 7 days. 21 tablet 0 No current facility-administered medications for this visit. PAST SURGICAL HISTORY Procedure Laterality Date TONSILLECTOMY PRIMARY/SECONDARY <AGE 11 FAMILY HISTORY Problem Relation Age of Onset other (ovarian cyst [Other]) Mother also ovarian tumor Cancer Father cancer of larynx Coronary Artery Disease Father 50 CABG 4, [place] Diabetes Father No Known Problems Sister No Known Problems Brother No Known Problems Brother Coronary Artery Disease Maternal Grandmother Cancer Maternal Grandmother gastric Coronary Artery Disease Maternal Grandfather Cancer Maternal Grandfather bone Coronary Artery Disease Paternal Grandmother Diabetes Paternal Grandmother Coronary Artery Disease Paternal Grandfather Stroke Paternal Grandfather Social History Tobacco Use Smoking status: Never Smoker Smokeless tobacco: Never Used Vaping Use Vaping Use: Never used Substance Use Topics Alcohol use: Yes Comment: occasional,< 1/mo Drug use: No Objective BP 118/80 Pulse 77 Temp 36.7 C (98.1 F) (Tympanic) Resp 18 Wt (!) 139.8 kg (308 lb 3.2 oz) LMP 03/25/2021 SpO2 97% BMI 48.27 kg/m Physical Exam Vitals reviewed. Constitutional: Appearance: Normal appearance. HENT: Head: Comments: Patient has erythema with a small appearing open vesicle to the bridge of the nose on the left. There is also some erythema and swelling of the upper eyelid. No injection of the sclera or tearing. Patient tender on palpation of the left cheek and behind the ear. No lesions apparent here yet. Neurological: Mental Status: She is alert. Assessment and Plan ASSESSMENT/PLAN: 1. Herpes zoster with complication - ICD9: 053.8, ICD10: B02.8 Patient has very early appearing shingles. She has a lesion on her nose and upper eyelid. She denies any eye pain or irritation of the eyeball itself. No trouble seeing. I did get her in with ophthalmology tomorrow morning for a recheck. Valtrex started tonight. Discussed ibuprofen and Tylenol. Swab was sent. Discussed even if the swab is negative as there was not an intact vesicle to swab I would still continue the Valtrex. Discussed contagiousness of the illness. Patient agreeable. - HSV 1,2/VZV AMP MOLECULAR DETECT Audelia Angeles PA-C documented in this encounter [facility] 11-05-2017 History of Past i llness Narrative Problem Noted Date Resolved Date Breast mass, right 11/05/2017 11/17/2018 Plantar fasciitis 11/05/2017 11/17/2018 Overview: left Other specified disorder of gallbladder 09/04/19 09 03/26/2016 documented as of this encounter (statuses as of 10/18/2021) [facility] History of Past illness Narrative* Problem Noted Date Resolved Date Breast mass, right 11/05/2017 11/17/2018 Plantar fasciitis 11/05/2017 11/17/2018 Overview: left Other specified disorder of gallbladder 09/04/1903/26/2016 documented as of this encounter (statuses as of 10/19/2021) [facility] History of Past illness Narrative* Problem Noted Date Resolved Date Breast mass, right 11/05/2017 11/17/2018 Plantar fasciitis 11/05/2017 11/17/2018 Overview: left Other specified disorder of gallbladder 09/04/1903/26/2016 documented as of this encounter (statuses as of 10/19/2021) [facility] History of Past illness Narrative* Problem Noted Date Resolved Date Breast mass, right 11/05/2017 11/17/2018 Plantar fasciitis 11/05/2017 11/17/2018 Overview: left Other specified disorder of gallbladder 09/04/1903/26/2016 documented as of this encounter (statuses as of 10/23/2021) [facility] History of Past illness Narrative* Problem Noted Date Resolved Date Breast mass, right 11/05/2017 11/17/2018 Plantar fasciitis 11/05/2017 11/17/2018 Overview: left Other specified disorder of gallbladder 09/04/1903/26/2016 documented as of this encounter (statuses as of 11/08/2021) [facility] of Past illness Narrative* Problem Noted Date Resolved Date Breast mass, right 11/05/2017 11/17/2018 Plantar fasciitis 11/05/2017 11/17/2018 Overview: left Other specified disorder of gallbladder 09/04/1903/26/2016 documented as of this encounter (statuses as of 05/07/2022) [facility] of Past illness Narrative* Problem Noted Date Resolved Date Breast mass, right 11/05/2017 11/17/2018 Plantar fasciitis 11/05/2017 11/17/2018 Overview: left Other specified disorder of gallbladder 09/04/1903/26/2016 documented as of this encounter (statuses as of 05/22/2022) [facility] of Past illness Narrative* Problem Noted Date Resolved Date Breast mass, right 11/05/2017 11/17/2018 Plantar fasciitis 11/05/2017 11/17/2018 Overview: left Other specified disorder of gallbladder 09/04/1903/26/2016 documented as of this encounter (statuses as of 05/26/2022) [facility] of Past illness Narrative* Problem Noted Date Resolved Date Breast mass, right 11/05/2017 11/17/2018 Plantar fasciitis 11/05/2017 11/17/2018 Overview: left Other specified disorder of gallbladder 09/04/1903/26/2016 documented as of this encounter (statuses as of 06/23/2022) [facility] of [facility] Narrative* Problem Noted Date Resolved Date Breast mass, right 11/05/2017 11/17/2018 Plantar fasciitis 11/05/2017 11/17/2018 Overview: left Other specified disorder of gallbladder 09/04/1903/26/2016 documented as of this encounter (statuses as of 07/24/2022) [facility] Narrative* Problem Noted Date Resolved Date Breast mass, right 11/05/2017 11/17/2018 Plantar fasciitis 11/05/2017 11/17/2018 Overview: left Other specified disorder of gallbladder 09/04/1903/26/2016 documented as of this encounter (statuses as of 08/09/2022) [facility] of [facility] Narrative* Problem Noted Date Resolved Date Breast mass, right 11/05/2017 11/17/2018 Plantar fasciitis 11/05/2017 11/17/2018 Overview: left Other specified disorder of gallbladder 09/04/1903/26/2016 documented as of this encounter (statuses as of 08/20/2022) [facility] of [facility] Narrative* Problem Noted Date Resolved Date Breast mass, right 11/05/2017 11/17/2018 Plantar fasciitis 11/05/2017 11/17/2018 Overview: left Other specified disorder of gallbladder 09/04/1903/26/2016 documented as of this encounter (statuses as of 11/12/2022) [facility] Narrative* Problem Noted Date Resolved Date Breast mass, right 11/05/2017 11/17/2018 Plantar fasciitis 11/05/2017 11/17/2018 Overview: left Other specified disorder of gallbladder 09/04/1903/26/2016 documented as of this encounter (statuses as of 11/26/2022) [facility] Narrative* Problem Noted Date Diagnosed Date Resolved Date Breast mass, right 11/05/2017 9 Plantar fasciitis 11/05/2017 11/17/2018 Overview: left Other specified disorder of gallbladder 09/03/2008 03/26/2016 documented as of this encounter (statuses as of 02/19/2023) [facility] Narrative* Problem Noted Date Diagnosed Date Resolved Date Breast mass, right 11/05/2017 9 Plantar fasciitis 11/05/2017 11/17/2018 Overview: left Other specified disorder of gallbladder 09/03/2008 03/26/2016 documented as of this encounter (statuses as of 02/19/2023) [facility] Narrative* Problem Noted Date Diagnosed Date Resolved Date Breast mass, right 11/05/2017 9 Plantar fasciitis 11/05/2017 11/17/2018 Overview: left Other specified disorder of gallbladder 09/03/2008 03/26/2016 documented as of this encounter (statuses as of 04/14/2023) [facility] Narrative* Problem Noted Date Diagnosed Date Resolved Date Breast mass, right 11/05/2017 9 Plantar fasciitis 11/05/2017 11/17/2018 Overview: left Other specified disorder of gallbladder 09/03/2008 03/26/2016 documented as of this encounter (statuses as of 04/17/2023) [facility] Narrative* Problem Noted Date Diagnosed Date Resolved Date Breast mass, right 11/05/2017 9 Plantar fasciitis 11/05/2017 11/17/2018 Overview: left Other specified disorder of gallbladder 09/03/2008 03/26/2016 documented as of this encounter (statuses as of 05/21/2023) [facility] Narrative* Problem Noted Date Diagnosed Date Resolved Date Breast mass, right 11/05/2017 9 Plantar fasciitis 11/05/2017 11/17/2018 Overview: left Other specified disorder of gallbladder 09/03/2008 03/26/2016 documented as of this encounter (statuses as of 08/05/2023) [facility] Narrative* Problem Noted Date Diagnosed Date Resolved Date Breast mass, right 11/05/2017 9 Plantar fasciitis 11/05/2017 11/17/2018 Overview: left Other specified disorder of gallbladder 09/03/2008 03/26/2016 documented as of this encounter (statuses as of 08/08/2023) [facility] Narrative* Problem Noted Date Diagnosed Date Resolved Date Breast mass, right 11/05/2017 9 Plantar fasciitis 11/05/2017 11/17/2018 Overview: left Other specified disorder of gallbladder 09/03/2008 03/26/2016 documented as of this encounter (statuses as of 08/12/2023) [facility] Herpes zoster with complication- Primary Herpes zoster with unspecified complication [facility] Diagnosis Herpes zoster dermatitis of eyelid- Primary [facility] Diagnosis Herpes zoster without complication- Primary Herpes zoster without mention of complication [facility] Diagnosis Essential hypertension, benign Hyperlipidemia LDL goal <130 Other and unspecified hyperlipidemia [facility] Diagnosis Encounter for screening mammogram for breast cancer [facility] Diagnosis Hyperlipidemia LDL goal <130 Other and unspecified hyperlipidemia Essential hypertension, benign Situational anxiety Other anxiety states [facility] Diagnosis Essential hypertension, benign- Primary Hyperlipidemia LDL goal <130 Other and unspecified hyperlipidemia CLEMENTE (nonalcoholic steatohepatitis) Other chronic nonalcoholic liver disease Morbid obesity (HCC) Morbid obesity Situational anxiety Other anxiety states Gastroesophageal reflux disease, unspecified whether esophagitis present Eczema, unspecified type Special screening examination for viral disease Special screening examination for unspecified viral disease Encounter for immunization Need for other specified prophylactic vaccination against single bacterial disease [facility] Diagnosis Situational anxiety Other anxiety states [facility] Diagnosis Hyperlipidemia LDL goal <130 Other and unspecified hyperlipidemia Essential hypertension, benign [facility] Diagnosis Essential hypertension, benign- Primary CLEMENTE (nonalcoholic steatohepatitis) Other chronic nonalcoholic liver disease Morbid obesity (HCC) Morbid obesity Hyperlipidemia LDL goal <130 Other and unspecified hyperlipidemia Gastroesophageal reflux disease, unspecified whether esophagitis present VIKI (generalized anxiety disorder) Generalized anxiety disorder [facility] Diagnosis Situational anxiety Other anxiety states [facility] Diagnosis Hyperlipidemia LDL goal <130 Other and unspecified hyperlipidemia Essential hypertension, benign [facility] Diagnosis Encounter for screening mammogram for breast cancer [facility] Diagnosis Situational anxiety Other anxiety states [facility] Diagnosis Encounter for screening mammogram for breast cancer [facility] Diagnosis Hyperlipidemia LDL goal <130 Other and unspecified hyperlipidemia Essential hypertension, benign Situational anxiety Other anxiety states [facility] Diagnosis Situational anxiety Other anxiety states [facility] Diagnosis Encounter for screening mammogram for breast cancer [facility] Diagnosis Onset Date Resolution Status Admit Date Dental infection acute March 27, 2025 11:18am [facility] Work Phone: Progress note Author Siddhartha Fields [facility] Note Date/Time March 27, 2025 1 2:29pm [facility] [address], [address] [place] [address] OFFICE VISIT Date of Service: 03/27/25 MR#: [id number] Acct: [id number] Name: MACIE CHAVEZ Rep #: [id number] : 1980 Provider: ANGELA Johnson Age/Sex: 44/F [facility] Status: Signed Intake Vital Signs 05/01/24 10:35 03/27/25 11:22 Height 5 ft 7 in Weight: 275 lb BMI 43.0 BP 128/86 H 142/68 H Blood Pressure Location Rt brachial Lt brachial Position Sitting Sitting Respiration 12 16 Pulse 94 73 Pulse Source Monitor NIBP Temp 98.4 F 98.3 F Temp Source Oral Oral Pulse Oximetry (%) 99 97 Oxygen Delivery Method room air room air Intake Visit Reasons: INFECTED TOOTH Chief Complaint: tooth pain 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 hx of root canal in area of concern, has appt with supervisor forming and tempering in the coming week. concern for infection HPI HPI Chief Complaint: tooth pain Details: MACIE CHAVEZ, is a 44 F who presents to the office today for evaluation of a dental infection. Patient states that she recently was treated for a dental infection approximately 3 weeks ago with amoxicillin TID x 10 days, she completed her course of antibiotic but has since noticed recurrence of discomfort over the past several days. Patient is set to see the supervisor forming and tempering in 5 days for definitive management but is concerned for worsening infection prior to upcoming procedure. Pain is currently well controlled on OTC analgesia. ROS Const Constitutional: No chills, fatigue, fever(s) or headache(s) ENT ENT: Positive for dental pain and mouth pain; No headache(s) Neuro Neurology: No headache(s) Endo Endocrine: No fatigue Exam Const General: cooperative, healthy appearing and no acute distress HENMT Mouth: oral mucosae normal, tongue normal, oropharynx normal and moist mucous membranes Teeth and gingiva: gingiva normal and abnormal tooth or associated gingiva upperright tender; without any associated gingival edema, without associated gingivalfluctuance, dentin not fractured and pulp not exposed Neck Lymphatic: no lymphadenopathy noted Coding Level of Care Code Established Pt Off vis,est,level 3 Patient Type Established History Expanded Problem Focused Exam Expanded Problem Focused Medical Decision Making Moderate Complexity Diagnoses Dental infection K04.7 Assessment and Plan Assessment and Plan (1) Dental infection: Status: Acute Plan: Mild symptoms, however given signs of recurrence with recent infection will provide Rx at this time to cover for infection while awaiting definitive management by dentist. Encouraged continued use of OTC analgesia for pain relief. Encouraged urgent f/u in the ER with severe edema, pain, or fever for reevaluation. Patient voiced understanding and agreement with plan. Medications: New amoxicillin 500 mg PO TID 15 caps 0RF 5 days Clinical Quality Measures Falls Risk Screening/Assistive Devices Have you fallen in the past year?: No 03/27/25 1133 <Electronically signed by Siddhartha MILLER> Date _ Siddhartha MILLER Cosigner Signature: Date (if applicable) CC: ~ [employer] Work Phone: [facility] for referral (narrative)* Diagnostic Procedure Only (Routine) - Pending Review Specialty Diagnoses / Procedures Referred By Stefano t Referred To Contact [facility] Diagnoses Encounter for screening mammogram for breast cancer Procedures LANDON SCREENING SCREENING MAMMOGRAPHY BI 2-VIEW BREAST INC Sharee Agarwal MD [address] [place] [address] [facility] [address] [place] [address] Referral ID Status Reason Start Date Expiration Date Visits Requested Visits Authorized [id number] Pending Review Auto-Generat ed Referral 06/01/2023 1 1 [facility] for referral (narrative)* Diagnostic Procedure Only (Routine) - Closed Specialty Diagnoses / Procedures Referred By Stefano chong Referred To Contact [facility] Diagnoses Encounter for screening mammogram for breast cancer Procedures LANDON SCREENING SCREENING MAMMOGRAPHY BI 2-VIEW BREAST INC Sharee Agarwal MD [address] [place] [address] [facility] [address] [place] [address] Referral ID Status Reason Start Date Expiration Date V isits Requested Visits Authorized [id number] Closed Auto-Generate d Referral 05/02/2022 06/01/2023 1 1 [facility] for referral (narrative)* Diagnostic Procedure Only (Routine) - Pending Review Specialty Diagnoses / Procedures Referred By Stefano t Referred To Contact [facility] Diagnoses Encounter for screening mammogram for breast cancer Procedures LANDON SCREENING SCREENING MAMMOGRAPHY BI 2-VIEW BREAST INC Sharee Agarwal MD [address] [place] [address] [facility] [address] [place] [address] Referral ID Status Reason Start Date Expiration Date Visits Requested Visits Authorized [id number] Pending Review Auto-Generat ed Referral 07/31/2023 08/29/2024 1 1 [facility]No reason for referral [facility] Services Work Phone: Reason for visit Narrative* Diagnostic Procedure Only (Routine) - Closed Specialty Diagnoses / Procedures Referred By Contjannet t Referred To Contact [facility] Diagnoses Encounter for screening mammogram for breast cancer Procedures LANDON SCREENING SCREENING MAMMOGRAPHY BI 2-VIEW BREAST INC CAD Sharee Thornton MD [address] [place] [address] [facility] [address] [place] [address] Referral ID Status Reason Start Date Expiration Date V isits Requested Visits Authorized [id number] Closed Auto-Generate d Referral 05/02/2022 06/01/2023 1 1 [facility] Medications Administered Section Active Administered Medications - up to 3 most recent administrations Medication Order MAR Action Action Date Dose Rate Site fluorescein-benoxinate 0.25-0.4 % 1 Drop (FLURESS) 1 Drop, BOTH EYES, DIRECTED, Starting on Ophelia 10/19/21 at 1000, Until Ophelia 10/19/21 at 2159, Administer for applanation tonometry. In the event of a Fluress shortage, administer [place]ar-Fluor 1 drop into both eyes as directed for applanation tonometry Given 10/19/2021 10:00 AM EDT 1 Drop PHENYLephrine 2.5 % 1 Drop (AK-DILATE, MAGY-SYNEPHRINE) 1 Drop, BOTH EYES, DIRECTED, Starting on Ophelia 10/19/21 at 1000, Until Ophelia 10/19/21 at 2159, Administer for dilation PROTECT FROM LIGHT Given 10/19/2021 10:00 AM EDT 1 Drop tropicamide 1 % 1 Drop (MYDRIACYL) 1 Drop, BOTH EYES, DIRECTED, Starting on Ophelia 10/19/21 at 1000, Until Ophelia 10/19/21 at 2159, Administer for dilation Given 10/19/2021 10:00 AM EDT 1 Drop Summary Purpose Family History No Family History Records FoundNo Family History Records Found Advance Directives No Advanced Directives Records FoundNo Advanced Directives Records Found Chief Complaint and Reason for Visit Chief Complaint Admit Date INFECTED TOOTH March 27, 2025 1 1:18am Reason for Visit Admit Date Dental infection March 27, 2025 1 1:18am Additional Source Comments Source Comments (unrecognize d section and content) In the event this informatio n is protected by the Federal Confidentiality of Alcohol and Drug Abuse Patient Records regulations: The Federal rules restrict any use of the information to criminally investigate or prosecute any alcohol or drug abuse patient.[facility] the event this information is protected by the Federal Confidentiality of Alcohol and Drug Abuse Patient Records regulations: The Federal rules restrict any use of the information to criminally investigate or prosecute any alcohol or drug abuse patient.[facility] the event this information is protected by the Federal Confidentiality of Alcohol and Drug Abuse Patient Records regulations: The Federal rules restrict any use of the information to criminally investigate or prosecute any alcohol or drug abuse patient.[facility] the event this information is protected by the Federal Confidentiality of Alcohol and Drug Abuse Patient Records regulations: The Federal rules restrict any use of the information to criminally investigate or prosecute any alcohol or drug abuse patient.[facility] the event this information is protected by the Federal Confidentiality of Alcohol and Drug Abuse Patient Records regulations: The Federal rules restrict any use of the information to criminally investigate or prosecute any alcohol or drug abuse patient.[facility] the event this information is protected by the Federal Confidentiality of Alcohol and Drug Abuse Patient Records regulations: The Federal rules restrict any use of the information to criminally investigate or prosecute any alcohol or drug abuse patient.[facility] the event this information is protected by the Federal Confidentiality of Alcohol and Drug Abuse Patient Records regulations: The Federal rules restrict any use of the information to criminally investigate or prosecute any alcohol or drug abuse patient.[facility] the event this information is protected by the Federal Confidentiality of Alcohol and Drug Abuse Patient Records regulations: The Federal rules restrict any use of the information to criminally investigate or prosecute any alcohol or drug abuse patient.[facility] the event this information is protected by the Federal Confidentiality of Alcohol and Drug Abuse Patient Records regulations: The Federal rules restrict any use of the information to criminally investigate or prosecute any alcohol or drug abuse patient.[facility] the event this information is protected by the Federal Confidentiality of Alcohol and Drug Abuse Patient Records regulations: The Federal rules restrict any use of the information to criminally investigate or prosecute any alcohol or drug abuse patient.[facility] the event this information is protected by the Federal Confidentiality of Alcohol and Drug Abuse Patient Records regulations: The Federal rules restrict any use of the information to criminally investigate or prosecute any alcohol or drug abuse patient.[facility] the event this information is protected by the Federal Confidentiality of Alcohol and Drug Abuse Patient Records regulations: The Federal rules restrict any use of the information to criminally investigate or prosecute any alcohol or drug abuse patient.[facility] the event this information is protected by the Federal Confidentiality of Alcohol and Drug Abuse Patient Records regulations: The Federal rules restrict any use of the information to criminally investigate or prosecute any alcohol or drug abuse patient.[facility] Hospital[facility] the event this information is protected by the Federal Confidentiality of Alcohol and Drug Abuse Patient Records regulations: The Federal rules restrict any use of the information to criminally investigate or prosecute any alcohol or drug abuse patient.[facility] the event this information is protected by the Federal Confidentiality of Alcohol and Drug Abuse Patient Records regulations: The Federal rules restrict any use of the information to criminally investigate or prosecute any alcohol or drug abuse patient.[facility] Hospital[facility] the event this information is protected by the Federal Confidentiality of Alcohol and Drug Abuse Patient Records regulations: The Federal rules restrict any use of the information to criminally investigate or prosecute any alcohol or drug abuse patient.[facility] HospitalIn the event this information is protected by the Federal Confidentiality of Alcohol and Drug Abuse Patient Records regulations: The Federal rules restrict any use of the information to criminally investigate or prosecute any alcohol or drug abuse patient.[facility] HospitalIn the event this information is protected by the Federal Confidentiality of Alcohol and Drug Abuse Patient Records regulations: The Federal rules restrict any use of the information to criminally investigate or prosecute any alcohol or drug abuse patient.[facility] HospitalIn the event this information is protected by the Federal Confidentiality of Alcohol and Drug Abuse Patient Records regulations: The Federal rules restrict any use of the information to criminally investigate or prosecute any alcohol or drug abuse patient.[facility] HospitalIn the event this information is protected by the Federal Confidentiality of Alcohol and Drug Abuse Patient Records regulations: The Federal rules restrict any use of the information to criminally investigate or prosecute any alcohol or drug abuse patient.[facility] HospitalIn the event this information is protected by the Federal Confidentiality of Alcohol and Drug Abuse Patient Records regulations: The Federal rules restrict any use of the information to criminally investigate or prosecute any alcohol or drug abuse patient.[facility] HospitalIn the event this information is protected by the Federal Confidentiality of Alcohol and Drug Abuse Patient Records regulations: The Federal rules restrict any use of the information to criminally investigate or prosecute any alcohol or drug abuse patient.[facility] HospitalIn the event this information is protected by the Federal Confidentiality of Alcohol and Drug Abuse Patient Records regulations: The Federal rules restrict any use of the information to criminally investigate or prosecute any alcohol or drug abuse patient.[facility] HospitalIn the event this information is protected by the Federal Confidentiality of Alcohol and Drug Abuse Patient Records regulations: The Federal rules restrict any use of the information to criminally investigate or prosecute any alcohol or drug abuse patient.[facility] Reason for Visit (unrecogniz ed section and content) Reason Comments Insect Bite on face x 1 day Reason Comments Shingles Reason Comments Results hsv cultures Reason Comments Acute Visit follow up for shingl es Reason Onset Date Comments Refill Request 11/08/2021 Reason Onset Date Comments Refill Request 05/21/2022 Reason Comments Follow Up 6 month Reason Onset Date Comments Refill Request 08/09/2022 Reason Onset Date Comments Refill Request 08/19/2022 Reason Onset Date Comments Refill Request 11/12/2022 Reason Comments F/U 6 Month Would like to discus s ozempic Reason Onset Date Comments Refill Request 02/19/2023 Reason Onset Date Comments Refill Request 05/20/2023 Reason Onset Date Comments Refill Request 08/12/2023 Reason Onset Date Comments Refill Request 11/27/2023 Care Teams (unrecognized sec tion and content) Geospatial Scientist Relationship Specialty Start Date End Date Sharee Thornton MD [address], [place] [id number] PCP - General Family Practice 03/14/21 Geospatial Scientist Relationship Specialty Start Date End Date Sharee Thornton MD [address], [place] [id number] PCP - General Family Practice 03/14/21 Geospatial Scientist Relationship Specialty Start Date End Date Sharee Thornton MD [address] [place] [address] PCP - General Family Practice 03/14/21 Geospatial Scientist Relationship Specialty Start Date End Date Sharee Thornton MD [address] [place] [address] PCP - General Family Practice 03/14/21 Geospatial Scientist Relationship Specialty Start Date End Date Sharee Thornton MD [address] [place] [address] PCP - General Family Practice 03/14/21 Geospatial Scientist Relationship Specialty Start Date End Date Sharee Thornton MD [address] [place] [address] PCP - General Family Medicine 03/14/21 Geospatial Scientist Relationship Specialty Start Date End Date Sharee Thornton MD [facility] [place] [address] PCP - General Family Medicine 03/14/21 Geospatial Scientist Relationship Specialty Start Date End Date Sharee Thornton MD [address] [place] [address] PCP - General Family Medicine 03/14/21 Geospatial Scientist Relationship Specialty Start Date End Date Sharee Thornton MD [address] [place] [address] PCP - General Family Medicine 03/14/21 Geospatial Scientist Relationship Specialty Start Date End Date Sharee Thornton MD [address] [place] [address] PCP - General Family Medicine 03/14/21 Geospatial Scientist Relationship Specialty Start Date End Date Sahree Thornton MD [address] [place] [address] PCP - General Family Medicine 03/14/21 Geospatial Scientist Relationship Specialty Start Date End Date Sharee Thornton MD [address] [place] [address] PCP - General Family Medicine 03/14/21 Geospatial Scientist Relationship Specialty Start Date End Date Sharee Thornton MD [address] [place] [address] PCP - General Family Medicine 03/14/21 Geospatial Scientist Relationship Specialty Start Date End Date Sharee Thornton MD [address] [place] [address] PCP - General Family Medicine 03/14/21 Geospatial Scientist Relationship Specialty Start Date End Date Sharee Thornton MD [address] [place] [address] PCP - General Family Medicine 03/14/21 Geospatial Scientist Relationship Specialty Start Date End Date Sharee Thornton MD [address] [place] [address] PCP - General Family Medicine 03/14/21 Geospatial Scientist Relationship Specialty Start Date End Date Sharee Thornton MD [address] [place] [address] PCP - General Family Medicine 03/14/21 Geospatial Scientist Relationship Specialty Start Date End Date Sharee Thornton MD [address] [place] [address] PCP - General Family Medicine 03/14/21 Geospatial Scientist Relationship Specialty Start Date End Date Sharee Thornton MD [address] [place] [address] PCP - General Family Medicine 03/14/21 Geospatial Scientist Relationship Specialty Start Date End Date Sharee Thornton MD [address] [place], [place] [id number] PCP - General Family Medicine 03/14/21 Geospatial Scientist Relationship Specialty Start Date End Date Sharee Thornton MD [address] [place], [place] [id number] PCP - General Family Medicine 03/14/21 Geospatial Scientist Relationship Specialty Start Date End Date Sharee Thornton MD [address] [place], [place] [address] PCP - General Family Medicine 03/14/21 Geospatial Scientist Relationship Specialty Start Date End Date Sharee Thornton MD [address] [place], [place] [address] PCP - General Family Medicine 03/14/21 Geospatial Scientist Relationship Specialty Start Date End Date Sharee Thornton MD [address] [place], [place] [id number] PCP - General Family Medicine 03/14/21 Katie Chris APRN.CNP [address] [place] [address] Small Business Director Family Medicine 05/16/24 Team Status: Active Member Role/Relationship Status Dates MITCH Mccloud Primary care physician Active Team Status: Inactive Member Role/Relationship Status Dates MITCH Mccloud Primary care physician Active Start: March 27, 2025 End: March 27, 2025 MITCH Mccloud Referring Provider Active St art: March 27, 2025 End: March 27, 2025 ANGELA Pressley Attending physician Active Start: March 27, 2025 End: March 27, 2025 INFORMATION SOURCE (unrecogn ized section and content) DATE CREATED AUTHOR 08/02/2024 [facility] DATE CREATED AUTHOR AUTHOR'S WILLI JAKMIKHAIL 04/10/2025 [facility] Goals (unrecognized section and content) Goals may be documented in a n alternate section FOR RECORDS PERTAINING TO PATIENTS WHO ARE OR HAVE BEEN ENROLLED IN A CHEMICAL DEPENDENCY/SUBSTANCEABUSE PROGRAM, SOME INFORMATION MAY BE OMITTED. This clinical summary was aggregated from multiple sources. Caution should be exercised in using it in the provision of clinical care. This summary normalizes information from multiple sources, and as a consequence, information in this document may materially change the coding, format and clinical context of patient data. In addition, data may be omitted in some cases. CLINICAL DECISIONS SHOULD BE BASED ON THE PRIMARY CLINICAL RECORDS. [employer] provides no warranty or guarantee of the accuracy or completeness of information in this document.
[2025-05-17 20:57] LABS: Mucous, Urine 0 SEEN /hpf (<or=2+)
[2025-05-17 21:00] VITALS: BP 168/93
[2025-05-17 21:04] LABS: Color, Urine Yellow (Yellow); Glucose, Dipstick Normal (Normal); Ketone-Dipstick 5 mg/dl (Negative); Leukocyte Esterase-Dipstick Negative /ul (Negative); Nitrite-Dipstick Negative (Negative); Occult Blood-Urine 10 /ul (Negative); Protein-Dipstick 30 mg/dl (Negative); Specific Gravity, Urine 1.010 (1.002-1.030); Urine Bilirubin Dipstick Negative (Negative)
[2025-05-17 21:05] LABS: Internal QC Validated? YES +Cl - CLEAR BKGD; Pregnancy, Urine Negative Negative
[2025-05-17 21:46] LABS: Red Blood Cells-Urine 0-5 SEEN /hpf (0-5); Squamous Epithelial Cells - UA 0-5 SEEN /hpf (5-10)
[2025-05-17 22:00] VITALS: PULSE 81; RESP 16; O2SAT 98
[2025-05-17 22:06] VITALS: BP 168/93; PULSE 81; RESP 16; TEMP 36; O2SAT 98
== END 2025-05-17 22:32 | disposition home or self-care (01) ==
PROVIDERS: Emergency Provider Student in an Organized Health Care Education/Training Program; PCP Nurse Practitioner Family; Visit Provider Student in an Organized Health Care Education/Training Program
DX: N83.201 Unspecified ovarian cyst, right side (principal); D25.9 Leiomyoma of uterus, unspecified; E78.00 Pure hypercholesterolemia, unspecified; R74.01 Elevation of levels of liver transaminase levels; R10.31 Right lower quadrant pain; K21.9 Gastro-esophageal reflux disease without esophagitis; I10 Essential (primary) hypertension; Z79.899 Other long term (current) drug therapy; E87.6 Hypokalemia
CPT/HCPCS: 74177; 76856; 80053; 81001; 81025; 83690; 85025; 96361; 96374; 99283; Q9967; A4216; J2405

== ENCOUNTER → 2025-05-21 | Outpatient (CLI) | payer OTHER, SELFPAY ==
--- NOTE | 2025-05-21 14:54 | MRI_ITS ---
EXAM: PELVIS W/WO CONTRAST 05/21/2025 CLINICAL HISTORY: BETTER IMAGING OF LARGE FIBROIDS LG OVARIAN CYST. TECHNIQUE: Procedure Code: [id number] Modality: MR Procedure: PELVIS W/WO CONTRAST Multiplanar and multisequence images were obtained with and without intravenous gadolinium contrast. CONTRAST: Clariscan VOLUME: 27 mL COMPARISON: 05/17/2025 FINDINGS: Variable overall mild/moderate motion limitation. Few sequences moderately motion degraded. Note that some pelvic viscera extend beyond the [id number] of small ibbnh-ty-[id number] sequences. Visualized bowel: Suboptimally evaluated by MRI better evaluated previously; no gross bowel dilatation. Couple sigmoid colonic diverticuli. Lymph nodes: Unremarkable. Vasculature: Grossly unremarkable. Peritoneum: Trace pelvic free fluid. Bladder: Underdistended and suboptimally evaluated; grossly unremarkable. Reproductive Organs: Multiple T2 dark presumed uterine fibroids. Dominant enhancing lesion again arises from the RIGHT anterior fundus and appears broadly pedunculated measuring 8.3 x 9.3 x 9.4 cm. Additional dominant enhancing lesion arising from the LEFT posterolateral aspect of the lower uterine segment/cervix also appears probably pedunculated measuring 6.9 x 8.9 x 6.8 cm. Additional enhancing lesion along the anterior lower uterine segment measures 3.4 x 4.0 3.5 cm and appears intramural but demonstrates mild mass-effect endometrial cavity which is slightly posteriorly deviated at this level. Additional smaller lesions annotated on series 6. Normal endometrial thickness. Borderline high normal junctional zone thicknesses, 11 mm. RIGHT ovary appears displaced to the LEFT of midline similar configuration to previous CT. Dominant RIGHT ovarian cyst in the LEFT pelvis measures 9.1 x 5.3 x 8.1 cm with tiny peripheral nodular enhancing mural foci individually up to roughly 11 x 5 mm. Additional small simple appearing unilocular RIGHT ovarian presumed dominant follicle/physiologic cysts, allowing for limitations. LEFT ovary grossly within normal limits including simple appearing unilocular presumed physiologic cyst/dominant follicles up to 2.6 cm. Punctate nabothian cysts. Body Wall: Grossly unremarkable. Bones: Grossly unremarkable. MRI/Pelvis W/WO Contrast IMPRESSION: 1. Somewhat limited exam as above. 2. RIGHT ovary appears displaced into the LEFT pelvis similar configuration to previous CT. This configuration can be seen in the setting of ovarian torsion which cannot be excluded by MRI. Note also that the large RIGHT ovarian cystic lesion below may serve as a nidus for torsion. 3. 9.1 cm RIGHT ovarian cystic lesion displaced into the LEFT pelvis as above, borderline but technically O-RADS 4 (intermediate risk of malignancy). Recommend clinical follow-up including consideration of r esection. Management per [employer] CHAIR/ONC. 4. Multiple presumed uterine fibroids up to 9.4 cm as described above. 5. Trace pelvic free fluid may be physiologic in this demographic. 6. Additional description as above. Incidental Finding Alert: As above. Recommend follow-up as above and management of incidental findings should follow the [employer] ([employer]) Incidental Findings Committee recommendations. Reading Location: [id number]
== END | disposition home or self-care (01) ==
PROVIDERS: PCP Nurse Practitioner Family; Referring Provider Obstetrics & Gynecology; Visit Provider Obstetrics & Gynecology
DX: D21.9 Benign neoplasm of connective and other soft tissue, unspecified (principal); N83.209 Unspecified ovarian cyst, unspecified side
CPT/HCPCS: 72197; A9575